=== PATIENT | female | born 1980 | race Two or more races ===

== ENCOUNTER 2020-07-02 12:57 | Outpatient (REF) | payer MEDICAID, SELFPAY ==
--- NOTE | ~2020-07-02 | XR_ITS ---
EXAMINATION: XR KNEE, BILATERAL XR HAND, LEFT CLINICAL INFORMATION: Pain in joint space. COMPARISON: None TECHNIQUE: Left hand/wrist 3 views. 4 views each knee. FINDINGS: LEFT HAND/WRIST: There is no visible acute fracture, dislocation or subluxation. No abnormal joint effusion seen. RIGHT KNEE: There is no visible acute fracture, dislocation or subluxation. There is mild loss of joint space medial compartment. The patellofemoral and the lateral compartment joint space is normal. No bony erosive changes or joint effusion seen. LEFT KNEE: There is no visible acute fracture, dislocation or joint effusion. There is mild loss of medial compartment joint space with lateral compartment periarticular spurring. No abnormal joint effusion seen. The soft tissues are normal. XR/XR hand wrist LT IMPRESSION: Unremarkable left hand/wrist exam. Mild degenerative changes medial compartment bilateral knees. There is no bony erosive changes, loose bodies or joint effusion.
--- NOTE | ~2020-07-02 | XR_ITS ---
EXAMINATION: XR KNEE, BILATERAL XR HAND, LEFT CLINICAL INFORMATION: Pain in joint space. COMPARISON: None TECHNIQUE: Left hand/wrist 3 views. 4 views each knee. FINDINGS: LEFT HAND/WRIST: There is no visible acute fracture, dislocation or subluxation. No abnormal joint effusion seen. RIGHT KNEE: There is no visible acute fracture, dislocation or subluxation. There is mild loss of joint space medial compartment. The patellofemoral and the lateral compartment joint space is normal. No bony erosive changes or joint effusion seen. LEFT KNEE: There is no visible acute fracture, dislocation or joint effusion. There is mild loss of medial compartment joint space with lateral compartment periarticular spurring. No abnormal joint effusion seen. The soft tissues are normal. XR/XR knee RT 3V IMPRESSION: Unremarkable left hand/wrist exam. Mild degenerative changes medial compartment bilateral knees. There is no bony erosive changes, loose bodies or joint effusion.
--- NOTE | ~2020-07-02 | XR_ITS ---
EXAMINATION: XR KNEE, BILATERAL XR HAND, LEFT CLINICAL INFORMATION: Pain in joint space. COMPARISON: None TECHNIQUE: Left hand/wrist 3 views. 4 views each knee. FINDINGS: LEFT HAND/WRIST: There is no visible acute fracture, dislocation or subluxation. No abnormal joint effusion seen. RIGHT KNEE: There is no visible acute fracture, dislocation or subluxation. There is mild loss of joint space medial compartment. The patellofemoral and the lateral compartment joint space is normal. No bony erosive changes or joint effusion seen. LEFT KNEE: There is no visible acute fracture, dislocation or joint effusion. There is mild loss of medial compartment joint space with lateral compartment periarticular spurring. No abnormal joint effusion seen. The soft tissues are normal. XR/XR knee LT 3V IMPRESSION: Unremarkable left hand/wrist exam. Mild degenerative changes medial compartment bilateral knees. There is no bony erosive changes, loose bodies or joint effusion.
[2020-07-02 14:57] LABS: MANUAL DIFF FLAG NO
[2020-07-02 15:03] LABS: Basophils Percent Auto 0.2 % (0-2); Eosinophils Absolute Auto 0.4 X10*3/uL (0.0-0.4); Eosinophils Percent Auto 3.2 % (0-4); Hematocrit 45.5 % (37-47); Hemoglobin 13.9 g/dl (12.0-16.0); Imm Gran Abs Auto 0.09 X10*3/uL (0.00-0.03); Imm Gran Pct Auto 0.7 % (0.0-0.4); Lymphocytes Absolute Auto 3.2 X10*3/uL (1.2-4.9); Lymphocytes Percent Auto 25.4 % (20-40); Mean Corpuscular HGB Conc 30.5 g/dl (31.0-35.0); Mean Corpuscular Hemoglobin 27.5 pg (27.0-33.0); Mean Corpuscular Volume 90.1 fL (80-98); Mean Platelet Volume 11.2 fL (9.4-12.3); Monocytes Absolute Auto 0.8 X10*3/uL (0.1-1.2); Monocytes Percent Auto 6.2 % (2-11); Neutrophils Absolute Auto 8.1 X10*3/uL (2.0-8.3); Neutrophils Percent Auto 64.3 % (45-73); Platelet Count 240 X10*3/uL (160-400); Red Blood Count 5.05 X10*6/uL (4.20-5.50); Red Cell Distribution Width 13.5 % (11.0-16.0); White Blood Count 12.7 X10*3/uL (4.8-10.8)
[2020-07-02 15:30] LABS: Alanine Aminotransferase 21 U/L (0-31); Alkaline Phosphatase 63 U/L (39-117); Anion Gap 12 (12-20); Aspartate Amino Transferase 19 U/L (5-31); Bilirubin Total 0.3 mg/dL (0.0-1.0); Blood Urea Nitrogen 11 mg/dL (9-16); C Reactive Protein 1.65 mg/dL (< or = 0.50); Calcium 9.4 mg/dL (8.4-10.2); Carbon Dioxide 29 mmol/L (22-29); Chloride 104 mmol/L (96-108); Estimated Glomerular Filt Rate > 60; Glucose Random 76 mg/dL (60-115); Potassium 4.5 mmol/L (3.3-5.1); Rheumatoid Factor < 15.0 IU/mL (<15.0); Sodium 140 mmol/L (135-145)
[2020-07-02 15:52] LABS: Thyroid Stimulating Hormone 1.01 uIU/mL (0.32-4.0)
[2020-07-02 15:55] LABS: Erythrocyte Sedimentation Rate 8 MM/HR (0-20)
[2020-07-03 12:22] LABS: Cyclic Citrullinated Peptide <16 UNITS
[2020-07-03 13:37] LABS: Anti Nuclear Antibody Screen NEGATIVE (NEGATIVE)
[2020-07-06 15:56] LABS: Vitamin D 25-OH, D2 <4 ng/mL; Vitamin D 25-OH, D3 13 ng/mL; Vitamin D 25-OH, Total 13 ng/mL (30-100)
== END 2020-07-02 12:58 | disposition home or self-care (01) ==
LOC: HO.LAB 12:57
PROVIDERS: PCP Internal Medicine; Visit Provider Student in an Organized Health Care Education/Training Program
DX: M25.50 Pain in unspecified joint (principal)
CPT/HCPCS: 36415; 73110; 73130; 73562; 80053; 82306; 84443; 85025; 85652; 86038; 86039; 86140; 86200; 86431; 99202

== ENCOUNTER 2021-01-09 10:14 | Outpatient (REF) | payer MEDICAID, SELFPAY ==
--- NOTE | ~2021-01-09 | XR_ITS ---
EXAMINATION: XR LUMBOSACRAL SPINE CLINICAL INFORMATION: Pain COMPARISON: Previous x-ray December 2013 TECHNIQUE: Three views of the lumbosacral spine. FINDINGS: Bone alignment is normal. No fracture or dislocation is seen. Disc spaces are normal. There is mild lower lumbar spine facet arthritis. Soft tissues are normal. XR/XR lumbar spine 2-3V IMPRESSION: Mild lower lumbar spine facet arthritis.
--- NOTE | ~2021-01-09 | XR_ITS ---
EXAMINATION: XR HIP, RIGHT CLINICAL INFORMATION: Pain COMPARISON: None TECHNIQUE: Two views of the right hip. FINDINGS: Bone alignment is normal. No fracture or dislocation is seen. There is a small superior lateral acetabular osteophyte. The joint space is otherwise. There is a right pelvic calcification probably representing a calcified phlebolith. Soft tissues are otherwise normal. XR/XR hip RT min 2V IMPRESSION: Small superior lateral acetabular osteophyte otherwise unremarkable exam.
--- NOTE | ~2021-01-09 | XR_ITS ---
EXAMINATION: XR ELBOW, LEFT CLINICAL INFORMATION: Pain COMPARISON: None TECHNIQUE: AP, lateral, and oblique views of the left elbow. FINDINGS: The bones and soft tissues are normal. No fracture or joint effusion. Alignment is anatomic. Joint spaces are maintained. XR/XR elbow LT 2V IMPRESSION: Normal left elbow.
== END 2021-01-09 10:15 | disposition home or self-care (01) ==
LOC: HO.XRAY 10:14
PROVIDERS: PCP Internal Medicine; Visit Provider Physician Assistant
DX: M54.59 Other low back pain (principal); M25.551 Pain in right hip; M25.522 Pain in left elbow
CPT/HCPCS: 72100; 73070; 73502

== ENCOUNTER → 2021-01-14 10:33 | Outpatient (BNVA) | payer MEDICAID, SELFPAY | PROVIDERS: PCP Internal Medicine; Visit Provider Nurse Practitioner Family | DX: M25.50 Pain in unspecified joint (principal); M25.522 Pain in left elbow | CPT/HCPCS: 99212 ==

== ENCOUNTER 2021-04-14 09:00 | Outpatient (REF) | payer MEDICAID, SELFPAY ==
[2021-04-14 10:02] LABS: Appearance Urine HAZY; Color Urine YELLOW; Glucose Urine UA NEG (NEG); Leukocyte Esterase Urine NEG (NEG); Nitrite Urine NEG (NEG); PH 5.5 (5.0-8.0); Specific Gravity - Urine >= 1.030 (1.005-1.025); Urine Blood NEG (NEG); Urine Ketones 5 MG/DL (NEG); Urine Protein TRACE MG/DL (NEG-TRACE)
[2021-04-14 10:28] LABS: Alanine Aminotransferase 20 U/L (0-31); Alkaline Phosphatase 58 U/L (39-117); Anion Gap 12 (12-20); Aspartate Amino Transferase 16 U/L (5-31); Bilirubin Total 0.3 mg/dL (0.0-1.0); Blood Urea Nitrogen 10 mg/dL (9-16); Calcium 9.8 mg/dL (8.4-10.2); Carbon Dioxide 29 mmol/L (22-29); Chloride 104 mmol/L (96-108); Estimated Glomerular Filt Rate > 60; Glucose Random 100 mg/dL (60-115); Potassium 4.8 mmol/L (3.3-5.1); Sodium 140 mmol/L (135-145); Total Protein 7.1 g/dL (6.5-8.0)
== END 2021-04-14 09:01 | disposition home or self-care (01) ==
LOC: HO.LAB 09:00
PROVIDERS: PCP Internal Medicine; Visit Provider Physician Assistant
DX: N23 Unspecified renal colic (principal)
CPT/HCPCS: 36415; 80053; 81003

== ENCOUNTER 2021-06-19 12:15 | Outpatient (REF) | payer MEDICAID, SELFPAY ==
--- NOTE | ~2021-06-19 | XR_ITS ---
EXAMINATION: XR CHEST CLINICAL INFORMATION: Acute cough COMPARISON: Previous chest x-ray February 2016 TECHNIQUE: 2 views of the chest were obtained. FINDINGS: No significant abnormality is noted involving the heart, lungs, mediastinum, bony thorax or soft tissues. XR/XR chest 2V IMPRESSION: Unremarkable examination.
[2021-06-19 13:58] LABS: Thyroid Stimulating Hormone 0.63 uIU/mL (0.32-4.0)
[2021-06-19 14:07] LABS: Folate > 20.0 ng/mL (> or = 4.0); Vitamin B12 854 pg/mL (200-900)
== END 2021-06-19 12:16 | disposition home or self-care (01) ==
LOC: HO.XRAY 12:15
PROVIDERS: Absent Provider Internal Medicine; PCP Internal Medicine; Visit Provider Psychiatry & Neurology Neurology
DX: R56.9 Unspecified convulsions (principal); R05.1 Acute cough
CPT/HCPCS: 36415; 71046; 82607; 82746; 84439; 84443

== ENCOUNTER 2021-07-16 11:20 | Outpatient (REF) | payer MEDICAID, SELFPAY ==
[2021-07-16 14:19] LABS: HCG Quantitative < 2 mIU/mL; TSH reflex Free T4 1.94 uIU/mL (0.32-4.0)
[2021-07-16 17:54] LABS: CT PCR NOT DETECTED (Not Detect.); NG PCR NOT DETECTED (Not Detect.)
[2021-07-18 01:37] LABS: Prolactin 6.7 ng/mL
[2021-07-19 14:45] LABS: HPV mRNA E6/E7 rflx Not Detected (Not Detected)
== END 2021-07-16 11:21 | disposition home or self-care (01) ==
LOC: HO.LAB 11:20
PROVIDERS: PCP Internal Medicine; Visit Provider Obstetrics & Gynecology
DX: Z01.419 Encounter for gynecological examination (general) (routine) without abnormal findings (principal); R31.29 Other microscopic hematuria; N91.2 Amenorrhea, unspecified; R10.2 Pelvic and perineal pain; D21.9 Benign neoplasm of connective and other soft tissue, unspecified; F17.210 Nicotine dependence, cigarettes, uncomplicated; Z32.02 Encounter for pregnancy test, result negative
CPT/HCPCS: 36415; 81025; 84146; 84443; 84702; 87086; 87491; 87591; 87624; 88142; 99202

== ENCOUNTER → 2021-08-06 11:38 | Outpatient (BNVA) | payer MEDICAID, SELFPAY | PROVIDERS: Visit Provider Obstetrics & Gynecology | DX: Z13.89 Encounter for screening for other disorder (principal) ==

== ENCOUNTER 2021-08-12 08:53 | Outpatient (REF) | payer MEDICAID, SELFPAY ==
--- NOTE | ~2021-08-12 | US_ITS ---
EXAMINATION: US PELVIS CLINICAL INFORMATION: Amenorrhea COMPARISON: Previous pelvic ultrasound August 2017 TECHNIQUE: Ultrasound of the pelvis is performed using both transabdominal and transvaginal transducers along with Doppler. Transvaginal imaging is performed due to inadequate visualization transabdominally. FINDINGS: The uterus is anteverted and measures 9.5 x 4.2 x 6 cm in dimension. There is a 1.2 x 1.4 x 1.2 cm hypoechoic cystic area in the right uterine fundus. This probably represents a cystic degeneration of the fibroid. No other focal uterine lesion is seen. Endometrial thickness is normal measuring 0.5 cm. There are nabothian cysts in the cervix. The ovaries are normal. The right ovary measures 4.3 x 2.4 x 2.6 cm. The left ovary measures 3.1 x 1.9 x 1.9 cm. There is no fluid in the pelvis. US/US pelvic and transvaginal IMPRESSION: 1.2 x 1.4 x 1.2 cm cystic lesion in the right uterine fundus probably representing cystic degeneration of fibroid. The previously identified second uterine fibroid in the left anterior uterine body is not appreciated. Normal thickness endometrium and normal-appearing ovaries.
== END 2021-08-12 08:54 | disposition home or self-care (01) ==
LOC: HO.HMGCX 08:53
PROVIDERS: Visit Provider Obstetrics & Gynecology
DX: N91.2 Amenorrhea, unspecified (principal)
CPT/HCPCS: 76830; 76856

== ENCOUNTER → 2021-09-05 14:38 | Outpatient (BNVA) | payer MEDICAID, SELFPAY | PROVIDERS: PCP Internal Medicine; Visit Provider Nurse Practitioner Family | DX: K21.9 Gastro-esophageal reflux disease without esophagitis (principal); K58.2 Mixed irritable bowel syndrome; R14.0 Abdominal distension (gaseous); M79.7 Fibromyalgia; Z79.899 Other long term (current) drug therapy | CPT/HCPCS: 99202; 99212 ==

== ENCOUNTER 2022-01-16 16:06 | Outpatient (REF) | payer MEDICAID, SELFPAY ==
[2022-01-16 17:42] LABS: Appearance Urine Cloudy; Color Urine Yellow; Glucose Urine UA Negative (Negative); Leukocyte Esterase Urine Negative (Negative); Nitrite Urine Negative (Negative); Urine Blood Negative (Negative); Urine Ketones Negative (Negative); Urine Protein Negative (Neg-Trace)
== END 2022-01-16 16:07 | disposition home or self-care (01) ==
LOC: HO.MANLDS 16:06
PROVIDERS: Visit Provider Physician Assistant
DX: R30.0 Dysuria (principal)
CPT/HCPCS: 81003; 87086

== ENCOUNTER 2022-04-22 08:01 | Outpatient (REF) | payer MEDICAID, SELFPAY ==
[2022-04-22 14:33] LABS: CT PCR NOT DETECTED (Not Detect.); NG PCR NOT DETECTED (Not Detect.)
== END 2022-04-22 08:02 | disposition home or self-care (01) ==
LOC: HO.LNP 08:01
PROVIDERS: PCP Internal Medicine; Visit Provider Obstetrics & Gynecology
DX: R10.2 Pelvic and perineal pain (principal); R31.29 Other microscopic hematuria
CPT/HCPCS: 0353U; 87086; 99212

== ENCOUNTER 2022-05-07 13:32 | Outpatient (REF) | payer MEDICAID, SELFPAY ==
--- NOTE | ~2022-05-07 | US_ITS ---
EXAMINATION: US PELVIS CLINICAL INFORMATION: Pelvic and perineal pain. LMP 2010. COMPARISON: 08/12/2021. TECHNIQUE: Ultrasound of the pelvis is performed using both transabdominal and transvaginal transducers along with Doppler. Transvaginal imaging is performed due to inadequate visualization transabdominally. FINDINGS: The uterus is anteverted and anteflexed measuring 7.5 x 3.2 x 4.2 cm. There is diffuse heterogeneity of the uterine myometrium with scattered hyperechoic foci, likely representing calcifications. There is a 1.3 x 1.3 x 1.6 cm intramural uterine lesion along the posterosuperior myometrium, statistically favoring to represent a fibroid. There are 2 cystic appearing lesions in the uterus, largest measuring 0.9 x 0.9 x 1 cm; this largest cystic lesion is unchanged since July 2021, the smaller lesion was not definitely identified on that prior examination. The endometrium measures 0.5 cm in thickness without discrete focal abnormality. There are multiple nabothian cyst overlying the cervix largest measuring 1.7 x 1.3 x 1.5 cm. Some of these demonstrate internal debris and septations. The ovaries are normal in morphology with preserved color flow to the adnexa at the moment of this examination. The right ovary measures 4 x 2.5 x 2 cm (10.7 mL) and the left ovary measures 3.2 x 1.5 x 2 cm (4.8 mL). No free fluid. US/US pelvic and transvaginal IMPRESSION: Uterine lesions, 2 of which are cystic, statistically favoring to represent fibroids with certain degree of degeneration. The uterine myometrium is diffusely heterogeneous with scattered calcifications, nonspecific could be related with the fibroids or underlying adenomyosis, recommend clinical correlation and if pertinent further characterization with a pelvic MRI with and without IV contrast. The endometrium measures 0.5 cm in thickness which is within the upper limits of normal for a postmenopausal patient. No discrete focal endometrial lesion is noted. Multiple nabothian cysts, some of which are complex with debris and septations. Recommend correlation with physical examination and a short-term follow-up pelvic ultrasound to reassess. Nonspecific slight asymmetric enlargement of the right ovary which is otherwise normal in morphology with preserved color flow at the moment of this examination. Recommend clinical correlation with localized pain, and a follow-up imaging as above.
== END 2022-05-07 13:33 | disposition home or self-care (01) ==
LOC: HO.US 13:32
PROVIDERS: Visit Provider Obstetrics & Gynecology
DX: R10.2 Pelvic and perineal pain (principal)
CPT/HCPCS: 76830; 76856

== ENCOUNTER 2022-05-11 09:05 | Outpatient (REF) | payer MEDICAID, SELFPAY ==
--- NOTE | ~2022-05-11 | XR_ITS ---
EXAMINATION: XR CERVICAL SPINE CLINICAL INFORMATION: Neck pain COMPARISON: Previous exam from 2014 TECHNIQUE: 3 views of the cervical spine were obtained. FINDINGS: Bone alignment is normal. No fracture or dislocation. Degenerative spondylosis at C5-C6 and C6-C7. Prevertebral soft tissues are normal. Arthritis at the bilateral T1 transverse process rib articulation, left greater than right. XR/XR cervical spine 3V IMPRESSION: Degenerative spondylosis at C5-C6 and C6-C7. Arthritis at the bilateral T1 transverse process rib articulation.
--- NOTE | ~2022-05-11 | XR_ITS ---
EXAMINATION: XR SHOULDER, LEFT CLINICAL INFORMATION: Pain. COMPARISON: None TECHNIQUE: Three views of the left shoulder. FINDINGS: The bones and soft tissues are normal. No fracture. Glenohumeral and acromioclavicular alignment is anatomic with normal joint space. No abnormal soft tissue calcifications. XR/XR shoulder LT min 2V IMPRESSION: Normal left shoulder.
--- NOTE | ~2022-05-11 | XR_ITS ---
EXAMINATION: XR KNEE, LEFT CLINICAL INFORMATION: Left knee pain. COMPARISON: Radiograph of the left knee 07/02/2020. TECHNIQUE: Two views of the left knee. FINDINGS: No acute fracture or subluxation. Mild joint space narrowing of the medial compartment. No erosions or chondrocalcinosis. Small joint effusion. No abnormal soft tissue calcifications. XR/XR knee LT 2V IMPRESSION: 1. No acute fracture or subluxation. 2. Mild degenerative osteoarthritis of the medial compartment. 3. Small joint effusion.
--- NOTE | ~2022-05-11 | XR_ITS ---
EXAMINATION: XR SACRUM AND COCCYX CLINICAL INFORMATION: Pain. COMPARISON: No similar priors. TECHNIQUE: 2 views of the sacrum and 2 views of the coccyx were obtained. FINDINGS: No acute fractures or malalignment. SI joints are symmetric with no significant sclerosis. Pubic symphysis is maintained. No erosive changes. No abnormal soft tissue calcifications. Pelvic phleboliths are noted. XR/XR sacrum coccyx min 2V IMPRESSION: No acute fractures or malalignment. If symptoms persist, consider correlation with an MRI.
== END 2022-05-11 09:06 | disposition home or self-care (01) ==
LOC: HO.XRAY 09:05
PROVIDERS: PCP Internal Medicine; Visit Provider Physician Assistant
DX: M54.2 Cervicalgia (principal); M25.512 Pain in left shoulder; M25.562 Pain in left knee; M53.3 Sacrococcygeal disorders, not elsewhere classified
CPT/HCPCS: 72040; 72220; 73030; 73560

== ENCOUNTER → 2022-05-13 10:17 | Outpatient (BNVA) | payer MEDICAID, SELFPAY | PROVIDERS: PCP Internal Medicine; Visit Provider Obstetrics & Gynecology | DX: D25.9 Leiomyoma of uterus, unspecified (principal); R31.29 Other microscopic hematuria | CPT/HCPCS: 99212 ==

== ENCOUNTER 2022-05-29 09:20 | Outpatient (REF) | payer MEDICAID, SELFPAY ==
--- NOTE | ~2022-05-29 | CT_ITS ---
EXAMINATION: CT ABDOMEN AND PELVIS WITHOUT AND WITH CONTRAST CLINICAL INFORMATION: Other microscopic hematuria. COMPARISON: None TECHNIQUE: Multidetector volumetric imaging was performed of the abdomen and pelvis before and after the IV administration of 85 mL of Omnipaque 350 intravenous contrast. Sagittal and coronal reformatted images were obtained on the technologist's workstation. This CT examination was performed using dose optimization techniques as appropriate, variously including the following: *Automated exposure control *Adjustment of mA and/or kV according to patient size (this includes techniques or standardized protocols for targeted exams where dose is matched to indication/reason for exam; i.e. extremities or head) *Use of iterative reconstruction technique DLP: 1386 mGy-cm FINDINGS: LUNG BASES: The lung bases are clear. Heart size is normal. LIVER, GALLBLADDER, AND BILIARY TREE: The liver is normal in size, shape and attenuation. No focal hepatic lesion or biliary ductal dilatation is present. The gallbladder is not visualized. PANCREAS: Unremarkable. SPLEEN: Unremarkable. ADRENAL GLANDS: Unremarkable. KIDNEYS AND URETERS: The kidneys are normal in size, shape, and attenuation. The right kidney oriented in AP direction and measures 10.7 cm. There is a nonobstructive 4 mm calculi lower pole right kidney. The left kidney is unremarkable. There is no caliectasis or hydronephrosis. Postcontrast, there is no enhancing mass or cyst. There is good opacification of bilateral kidney pelvises and the ureters. BLADDER: The bladder is nondistended. GASTROINTESTINAL TRACT: There is scattered stool and gas seen throughout the colon without distention. The small bowel loops are normal caliber. Appendix is not visualized. No inflammatory process seen in the abdomen. ABDOMINAL WALL: No significant hernia is appreciated. LYMPH NODES: Small shotty lymph nodes are seen in the retroperitoneum largest measuring 1 cm. VASCULAR: Unremarkable. PELVIC VISCERA: The uterus is anteverted with a small hypodensity symmetrical junction likely a small Nabothian cysts. Small shotty bilateral inguinal lymph nodes seen slightly more prominent on the right side measuring 1.7 cm. OSSEOUS STRUCTURES: No aggressive lytic or sclerotic process seen. CT/CT abdomen pelvis wo/w IV con IMPRESSION: Nonobstructive 4 mm calculi lower pole right kidney. No caliectasis or hydronephrosis. Mild constipation. Fleischner guidelines were followed.
[2022-05-29] MEDS: iohexoL 350 MG/ML 100 ML INFUS..BTL IV (11:15)
== END 2022-05-29 09:21 | disposition home or self-care (01) ==
LOC: HO.CT 09:20
PROVIDERS: Visit Provider Obstetrics & Gynecology
DX: R31.29 Other microscopic hematuria (principal)
CPT/HCPCS: 74178; Q9967

== ENCOUNTER 2022-06-29 14:00 | Emergency (ER) | payer MEDICAID, SELFPAY ==
[2022-06-29 14:19] VITALS: BP 156/91; PULSE 90; RESP 18; TEMP 36.8; O2SAT 96; BMI 51.5
--- NOTE | 2022-06-29 14:45 | ED.GENADULT ---
HPI - General Adult General Chief complaint: Allergic Reaction Stated complaint: allergic reaction to med, tight chest,numb face Time Seen by Provider: 06/29/22 15:45 Related Data Home Medications Medication Instructions Recorded Confirmed albuterol sulfate 90 mcg/actuation 1 puff inhalation QID 07/02/20 aerosol inhaler (ProAir HFA) budesonide-formoterol HFA 80 2 puff inhalation BID 07/02/20 mcg-4.5 mcg/actuation aerosol inhaler (Symbicort) clonazepam 0.5 mg tablet 0.5 mg PO QID PRN 07/02/20 ibuprofen 800 mg tablet 800 mg PO Q8H 01/14/21 tramadol 50 mg tablet 50 mg PO Q6H 01/14/21 losartan 25 mg tablet 25 mg PO DAILY 05/13/22 Previous Rx's Medication Instructions Recorded cock up wrist splint #1 ea 01/14/21 methylcellulose (laxative) 500 mg 500 mg PO DAILY #90 tabs 09/05/21 tablet (Citrucel) pantoprazole 40 mg tablet,delayed 40 mg PO DAILY #90 tabs 09/05/21 release sennosides 8.6 mg tablet (Natural 8.6 mg PO BEDTIME constipation #90 09/05/21 Senna Laxative) tabs cholecalciferol (vitamin D3) 50 50 mcg PO DAILY #90 caps 09/17/21 mcg (2,000 unit) capsule Allergies Allergy/AdvReac Type Severity Reaction Status Date / Time bupropion [From WELLBUTRIN] Allergy Severe TACHYCARDIA Verified 05/13/22 10:28 PMFSH Past Medical History Medical History Anxiety Asthma Depression Dissociative identity disorder Polyarthralgia PTSD (post-traumatic stress disorder) Sleep apnea Surgical History H/O tubal ligation History of tonsillectomy Hx of cholecystectomy Family History Family History Mother Acute arthritis Breast cancer Stomach cancer Father Chronic lymphocytic leukemia (CLL), B-cell HTN (hypertension) Acromioclavicular joint arthritis Social History Social History Household Members: Children Alcohol intake: current Alcohol intake frequency: holidays/special occasions only Patient Tobacco Use Status: Current everyday Tobacco user Cigarettes Per Day: 5 Advance Directives: No Advance Directives Information Provided: No Physical Exam ED Vital Signs: Vital Signs - 24 hr 06/29/22 14:19 Temperature 98.3 F Pulse Rate 90 Respiratory Rate 18 Blood Pressure 156/91 H Pulse Oximetry 96 Oxygen Delivery Method Nasal Cannula BMI result Body Mass Index 51.5 Course Course Course Narrative: RME: 41 yold female presents to the ED for itchiness after taking losartan which is her new medication she started using eyerday. no rash. negative for lip swelling/tongue swelling or shortness of breath. patient not in distress. lungs clear and speaking in full sentences. no chest pain. Discharge Plan Discharge Clinical Impression: Allergic reaction Patient Disposition: Elopement Prescriptions: No Action cholecalciferol (vitamin D3) 50 mcg (2,000 unit) capsule 50 mcg PO DAILY Qty: 90 1RF clonazepam 0.5 mg tablet 0.5 mg PO QID PRN albuterol sulfate [ProAir HFA] 90 mcg/actuation HFA aerosol inhaler 1 puff inhalation QID budesonide-formoterol [Symbicort] 80-4.5 mcg/actuation HFA aerosol inhaler 2 puff inhalation BID tramadol 50 mg tablet 50 mg PO Q6H ibuprofen 800 mg tablet 800 mg PO Q8H (DME) cock up wrist splint See Rx Instructions .Route .MEDSUPPLY Qty: 1 0RF Rx Instructions: As directed, wear at night. losartan 25 mg tablet 25 mg PO DAILY pantoprazole 40 mg tablet,delayed release (DR/EC) 40 mg PO DAILY Qty: 90 2RF Rx Instructions: take one tablet half an hour before breakfast Citrucel 500 mg tablet 500 mg PO DAILY Qty: 90 2RF Rx Instructions: take it with full glass of water sennosides [Natural Senna Laxative] 8.6 mg tablet 8.6 mg PO BEDTIME Qty: 90 3RF Interventions: ED Discharge Assessment Last Done: 06/29/22 18:13 Discharge Date/Time: 06/29/22 18:14
== END 2022-06-29 18:14 | disposition left against medical advice (07) ==
PROVIDERS: Emergency Provider Emergency Medicine; PCP Internal Medicine
DX: L50.0 Allergic urticaria (principal)
CPT/HCPCS: 99282

== ENCOUNTER 2022-07-07 08:59 | Outpatient (REF) | payer MEDICAID, SELFPAY ==
[2022-07-07 16:57] LABS: Urine Cytology See Pathology rpt
== END 2022-07-07 09:00 | disposition home or self-care (01) ==
LOC: HO.LNP 08:59
PROVIDERS: PCP Internal Medicine; Visit Provider Nurse Practitioner Family
DX: R31.29 Other microscopic hematuria (principal); N20.0 Calculus of kidney
CPT/HCPCS: 88112; 99202

== ENCOUNTER 2022-09-17 13:43 | Outpatient (REF) | payer MEDICAID, SELFPAY ==
[2022-09-17 15:57] LABS: Alanine Aminotransferase 27 U/L (0-31); Albumin Level 3.9 g/dL (3.5-5.0); Alkaline Phosphatase 57 U/L (39-117); Aspartate Amino Transferase 16 U/L (5-31); Bilirubin Direct 0.1 mg/dL (0.0-0.5); Bilirubin Total 0.3 mg/dL (0.0-1.0); Lipase 40 U/L (8-78); Total Protein 7.3 g/dL (6.5-8.0)
[2022-09-17 16:12] LABS: Vitamin D 25-OH Total 23.2 ng/mL (>30)
[2022-09-17 16:13] LABS: TSH reflex Free T4 1.65 uIU/mL (0.32-4.0)
[2022-09-17 16:33] LABS: Folate 14.8 ng/mL (> or = 4.0); Vitamin B12 639 pg/mL (200-900)
[2022-09-22 14:58] LABS: Vitamin D 25-OH, D2 <4 ng/mL; Vitamin D 25-OH, D3 19 ng/mL; Vitamin D 25-OH, Total 19 ng/mL (30-100)
[2022-10-01 13:23] LABS: Transglutaminase IgA <1.0 U/mL
== END 2022-09-17 13:44 | disposition home or self-care (01) ==
LOC: HO.LAB 13:43
PROVIDERS: Nurse Practitioner Family; PCP Internal Medicine; Visit Provider Nurse Practitioner Family
DX: K57.90 Diverticulosis of intestine, part unspecified, without perforation or abscess without bleeding (principal); K21.9 Gastro-esophageal reflux disease without esophagitis; K58.0 Irritable bowel syndrome with diarrhea; K58.1 Irritable bowel syndrome with constipation; K59.01 Slow transit constipation; E55.9 Vitamin D deficiency, unspecified; M79.7 Fibromyalgia; R11.0 Nausea; R14.0 Abdominal distension (gaseous); R10.9 Unspecified abdominal pain
CPT/HCPCS: 36415; 80076; 82306; 82607; 82746; 83690; 84443; 86364; 99212

== ENCOUNTER 2023-02-17 10:47 | Outpatient (REF) | payer MEDICAID, SELFPAY ==
[2023-02-17 11:04] LABS: MANUAL DIFF FLAG NO
[2023-02-17 11:49] LABS: Basophils Percent Auto 0.2 % (0-2); Eosinophils Absolute Auto 0.3 X10*3/uL (0.0-0.4); Eosinophils Percent Auto 3.1 % (0-4); Hematocrit 45.6 % (37.0-47.0); Hemoglobin 14.1 g/dl (12.0-16.0); Imm Gran Abs Auto 0.07 X10*3/uL (0.00-0.03); Imm Gran Pct Auto 0.6 % (0.0-0.4); Lymphocytes Absolute Auto 2.3 X10*3/uL (1.2-4.9); Lymphocytes Percent Auto 21.3 % (20-40); Mean Corpuscular HGB Conc 30.9 g/dl (31.0-35.0); Mean Corpuscular Volume 90.5 fL (80.0-98.0); Mean Platelet Volume 11.1 fL (9.4-12.3); Monocytes Absolute Auto 0.3 X10*3/uL (0.1-1.2); Monocytes Percent Auto 2.8 % (2-11); Neutrophils Absolute Auto 7.9 x10*3/uL (2.0-8.3); Platelet Count 252 X10*3/uL (160-400); Red Blood Count 5.04 X10*6/uL (4.20-5.50); Red Cell Distribution Width 14.2 % (11.0-16.0)
[2023-02-17 11:59] LABS: Estimated Average Glucose 108 mg/dL; Hemoglobin A1c % 5.4 % (<6.0)
[2023-02-17 12:32] LABS: Alanine Aminotransferase 26 U/L (0-31); Albumin Level 3.8 g/dL (3.5-5.0); Alkaline Phosphatase 58 U/L (39-117); Anion Gap 9 (12-20); Aspartate Amino Transferase 17 U/L (5-31); Bilirubin Total 0.3 mg/dL (0.0-1.0); Blood Urea Nitrogen 14 mg/dL (9-16); Calcium 9.2 mg/dL (8.4-10.2); Carbon Dioxide 28 mmol/L (22-29); Chloride 107 mmol/L (96-108); Estimated Glomerular Filt Rate > 60; Glucose Random 107 mg/dL (60-115); Iron 45 mcg/dL (30-160); Percent Iron Saturation 19 % (15-50); Potassium 3.7 mmol/L (3.3-5.1); Sodium 140 mmol/L (135-145); Total Iron Binding Capacity 239 mcg/dL (228-428); Total Protein 7.1 g/dL (6.5-8.0); Unsaturated Iron Binding 194 ug/dL
[2023-02-17 12:48] LABS: TSH reflex Free T4 1.58 uIU/mL (0.32-4.0); Vitamin D 25-OH Total 15.4 ng/mL (>30)
[2023-02-17 12:57] LABS: Folate 14.8 ng/mL (> or = 4.0); Vitamin B12 731 pg/mL (200-900)
== END 2023-02-17 10:48 | disposition home or self-care (01) ==
LOC: HO.LAB 10:47
PROVIDERS: PCP Physician Assistant; Visit Provider Physician Assistant
DX: I10 Essential (primary) hypertension (principal); R53.83 Other fatigue
CPT/HCPCS: 36415; 80053; 82306; 82607; 82746; 83036; 83540; 84443; 85025

== ENCOUNTER → 2023-02-22 13:28 | Outpatient (REF) | payer MEDICAID, SELFPAY ==
--- NOTE | 2023-02-22 13:34 | HM_ITS ---
* Total monitoring time 2 days. * Underlying rhythm is sinus with an average rate of 97/Min. Range 66 to 146/Min. About 36% of the time, rate greater than 100/min. * Rare supraventricular and ventricular ectopy. * No sustained arrhythmias. * No significant pauses or AV blocks. * No patient markers or events in diary. MTDD
== END ==
LOC: HO.CARD 13:28
PROVIDERS: PCP Internal Medicine; Visit Provider Physician Assistant
DX: R42 Dizziness and giddiness (principal)
CPT/HCPCS: 93225

== ENCOUNTER → 2023-02-22 13:34 | Outpatient (BNV) | payer MEDICAID, SELFPAY | PROVIDERS: PCP Internal Medicine; Visit Provider Internal Medicine | DX: I47.10 Supraventricular tachycardia, unspecified (principal) | CPT/HCPCS: 93227 ==

== ENCOUNTER 2023-06-20 19:07 | Emergency (ER) | payer MEDICAID, SELFPAY ==
[2023-06-20 19:33] VITALS: BP 202/95; PULSE 103; RESP 18; TEMP 36.2; O2SAT 97; BMI 45.4
[2023-06-20 19:53] LABS: Hematocrit 46.4 % (37.0-47.0); Hemoglobin 15.2 g/dl (12.0-16.0); Mean Corpuscular HGB Conc 32.8 g/dl (31.0-35.0); Mean Corpuscular Hemoglobin 29.2 pg (27.0-33.0); Mean Corpuscular Volume 89.1 fL (80.0-98.0); Mean Platelet Volume 9.9 fL (9.4-12.3); Platelet Count 259 X10*3/uL (160-400); Red Blood Count 5.21 X10*6/uL (4.20-5.50); Red Cell Distribution Width 13.8 % (11.0-16.0); White Blood Count 15.4 X10*3/uL (4.8-10.8)
[2023-06-20 20:11] LABS: Alanine Aminotransferase 18 U/L (0-31); Albumin Level 3.9 g/dL (3.5-5.0); Alkaline Phosphatase 69 U/L (39-117); Anion Gap 11 (12-20); Aspartate Amino Transferase 13 U/L (5-31); Bilirubin Total 0.2 mg/dL (0.0-1.0); Blood Urea Nitrogen 13 mg/dL (9-16); Calcium 9.9 mg/dL (8.4-10.2); Carbon Dioxide 29 mmol/L (22-29); Chloride 107 mmol/L (96-108); Creatinine Clr Calc Pharmacy 119.4; Estimated Glomerular Filt Rate > 60; Glucose Random 103 mg/dL (60-115); Potassium 4.2 mmol/L (3.3-5.1); Sodium 143 mmol/L (135-145); Total Protein 7.1 g/dL (6.5-8.0)
[2023-06-20 20:55] VITALS: BP 144/85; PULSE 83; RESP 20; O2SAT 93
--- NOTE | 2023-06-20 21:32 | ED.SKABFB ---
HPI - Skin/Abscess/Foreign Bdy General Chief complaint: Skin/Abscess/Foreign Body Stated complaint: leaking ruptured cyst on abd Time Seen by Provider: 06/20/23 21:01 Source: patient Mode of arrival: ambulatory Limitations: no limitations History of Present Illness HPI narrative: 42 yo female with PMH of obesity, not a diabetic no hx of MRSA notes 1 month ago she had a cyst on her right lower abdomen and a senior administrative associate injected with saline. On wednesday it started to hurt and then yesterday it opened and started to drain. Today more draining and now redness and pain across the entire lower skin. No fevers, n/v or chills. This has never happened before. MD complaint: rash and abscess/boil Onset (ago): day(s) (Wednesday) Location: generalized (abdomen) Severity: moderate Quality: aching Pain Consistency: constant Relieving factors: none Exacerbating factors: palpation and movement Context: none Associated symptoms: denies other symptoms Treatments prior to arrival: bandages Related Data Home Medications Medication Instructions Recorded Confirmed albuterol sulfate 90 mcg/actuation 1 puff inhalation QID 07/02/20 07/07/22 aerosol inhaler (ProAir HFA) clonazepam 0.5 mg tablet 0.5 mg PO QID PRN 07/02/20 07/07/22 ibuprofen 800 mg tablet 800 mg PO Q8H 01/14/21 07/07/22 tramadol 50 mg tablet 50 mg PO Q6H 01/14/21 07/07/22 duloxetine 30 mg capsule,delayed 30 mg PO DAILY 07/07/22 07/07/22 release Previous Rx's Medication Instructions Recorded cock up wrist splint #1 ea 01/14/21 pyridoxine (vitamin B6) 100 mg 100 mg PO DAILY 90 days #90 tabs 07/07/22 tablet methylcellulose (laxative) 500 mg 500 mg PO DAILY #90 tabs 09/17/22 tablet (Citrucel) sennosides 8.6 mg tablet (Natural 8.6 mg PO BEDTIME constipation #90 09/17/22 Senna Laxative) tabs cholecalciferol (vitamin D3) 50 50 mcg PO DAILY #90 caps 10/01/22 mcg (2,000 unit) capsule cephalexin 500 mg capsule 500 mg PO 1XD 7 days #7 caps 06/20/23 doxycycline hyclate 100 mg capsule 100 mg PO BID 7 days #14 caps 06/20/23 hydrocodone 5 mg-acetaminophen 325 1 tab PO Q6H PRN pain #10 tabs 06/20/23 mg tablet Allergies Allergy/AdvReac Type Severity Reaction Status Date / Time bupropion [From WELLBUTRIN] Allergy Severe TACHYCARDIA Verified 06/20/23 19:33 losartan Allergy rash/swelling/blurred Verified 06/20/23 19:33 vision Review of Systems Review of Systems: Constitutional : No Fever, No Chills ENT/Mouth : No sore throat, No Rhinorrhea Eyes: No Eye Pain, No Swelling, No Redness Cardiovascular : No Chest Pain, No SOB Respiratory : No Cough, No Sputum Gastrointestinal : No Nausea, No Vomiting, No Diarrhea, No abdominal Pain Genitourinary : No Dysuria, No Hematuria Musculoskeletal : No joint pain, No Myalgias, No Joint Swelling Skin : No Skin Lesions, positive skin rash Neuro : No Weakness, No Numbness, No Headache Psych : No Anxiety, No Depression Heme/Lymph: No Bruising, No Bleeding,No Lymphadenopathy Endocrine : No Polyuria, No Polydipsia All other systems reviewed and are negative [facility] Past Medical History Attestation statement: The following information was validated with the patient. Source: old records reviewed Medical History Sleep apnea Dissociative identity disorder PTSD (post-traumatic stress disorder) Anxiety Depression Asthma Polyarthralgia Surgical History H/O tubal ligation Hx of cholecystectomy History of tonsillectomy Family History Family History Mother Acute arthritis Breast cancer Stomach cancer Father Chronic lymphocytic leukemia (CLL), B-cell HTN (hypertension) Acromioclavicular joint arthritis Social History Social History Household Members: Children Alcohol intake: current Alcohol intake frequency: a few times a week Patient Tobacco Use Status: Current everyday Tobacco user Cigarettes Per Day: 5 Smoked in Last 30 Days: Yes Use of substances other than those prescribed or required for medical reasons: Yes Substance Use Type: Marijuana Substance Use Frequency: Socially Advance Directives: No Advance Directives Information Provided: No Patient : No Physical Exam Vital Signs: Vital Signs: Last Vital Signs Temp 97.2 F 06/20/23 19:33 Pulse 83 06/20/23 20:55 Resp 20 06/20/23 20:55 BP 144/85 H 06/20/23 20:55 Pulse Ox 93 06/20/23 20:55 O2 Del Method Room Air 06/20/23 20:55 BMI result Body Mass Index 45.4 Appearance: Alert. Oriented X3. No acute distress. Eyes: Pupils equal, round and reactive to light. ENT: Pharynx normal. Neck: Normal inspection. Neck supple. CVS: Normal heart rate and rhythm. Pulses normal. Respiratory: No respiratory distress. Breath sounds normal. Abdomen: Soft right lower abdomen 2cm pustule that is draining with surrounding edema and erythema erythema extends to midline it is about 6 to 8cm in length Skin: Skin warm and dry. Normal skin color. Normal skin turgor. Extremities: No lower extremity edema. No calf ttp Neuro: Oriented X 3. No motor deficit. No sensory deficit. Medications Administered Discontinued Medications Generic Name Dose Route Start Last Admin Trade Name Kirillq PRN Reason Stop Dose Admin Hydrocodone Bitart/Acetaminophen 1 tab 06/20/23 21:10 06/20/23 21:36 Hydrocodone Bit/Acetam 5/325 Tablet PO 06/20/23 21:11 1 tab ONCE ONE Administration Piperacillin Sod/Tazobactam 50 mls @ 100 mls/hr 06/20/23 21:10 06/20/23 22:35 Sod 3.375 gm/ Sodium Chloride IV 06/20/23 21:39 Infused ONCE ONE Infusion Ondansetron HCl 4 mg 06/20/23 21:10 06/20/23 21:36 Ondansetron Odt 4 Mg Tab.Rapdis TRANSLINGU 06/20/23 21:11 4 mg ONCE ONE Administration Medical Decision Making Medical Decision Making MDM Narrative: 42 yo female with no PMH of diabetes or MRSA here with c/o R lower abdomen draining pustule now with lower abdominal wall cellulitis she denies systemic symptoms area is superficial it is not deep and already draining at this time will obtain labs, start on zosyn and reassess. Possible admit vs discharge pending observation in the ED. Differential Diagnosis Differential Diagnoses: The differential diagnosis associated with the presentation includes abscess, cellulitis Admission/Observation Consideration of admission/observation: Escalation of care including admission/observation considered VS stable, negative lactic acid, eating and drinking does have elevated WBC count but hx of same she is reasonable for outpatient management at this time will send home with precautions Lab Data MDM Lab Attestation statement: I reviewed the patient's lab results. 06/20/23 19:48 06/20/23 19:48 Labs: Lab Results 06/20/23 06/20/23 Range/Units 19:48 21:21 WBC 15.4 H (4.8-10.8) X10*3/uL RBC 5.21 (4.20-5.50) X10*6/uL Hgb 15.2 (12.0-16.0) g/dl Hct 46.4 (37.0-47.0) % MCV 89.1 (80.0-98.0) fL MCH 29.2 (27.0-33.0) pg MCHC 32.8 (31.0-35.0) g/dl RDW 13.8 (11.0-16.0) % Plt Count 259 (160-400) X10*3/uL MPV 9.9 (9.4-12.3) fL Absolute Nucleated RBC 0.000 (0.0-0.012) X10*3/uL Nucleated RBC % (auto) 0.0 (0.0-0.2) /100WBC Sodium 143 (135-145) mmol/L Potassium 4.2 (3.3-5.1) mmol/L Chloride 107 (96-108) mmol/L Carbon Dioxide 29 (22-29) mmol/L Anion Gap 11 L (12-20) BUN 13 (9-16) mg/dL Creatinine 0.72 (0.5-1.4) mg/dL Estim Creat Clear Calc 119.4 Estimated GFR > 60 Random Glucose 103 (60-115) mg/dL Lactic Acid 0.7 (0.5-2.0) mmol/L Calcium 9.9 D (8.4-10.2) mg/dL Total Bilirubin 0.2 (0.0-1.0) mg/dL AST 13 (5-31) U/L ALT 18 (0-31) U/L Alkaline Phosphatase 69 (39-117) U/L Total Protein 7.1 (6.5-8.0) g/dL Albumin 3.9 (3.5-5.0) g/dL External Record Review External record reviewed: Inpatient record Prescription Management I considered prescription management with: Pain Medication and Antibiotic Discharge Plan Discharge Clinical Impression: Cellulitis Qualifiers: Site of cellulitis: trunk Site of cellulitis of trunk: abdominal wall Qualified Code(s): L03.311 - Cellulitis of abdominal wall Abscess of skin or subcutaneous tissue Qualifiers: Site of cutaneous abscess: trunk Site of cutaneous abscess of trunk: abdominal wall Qualified Code(s): L02.211 - Cutaneous abscess of abdominal wall Patient Disposition: Home, Self-Care Instructions: Cellulitis (ED), Abscess (ED) Additional Instructions: warm compresses to allow it to drain for the next 3 days. keep it clean and covered with sterile dressings. return for increased pain, fevers, redness and swelling - redness past the belly button or extending upwards finish and complete all antibiotics take antibiotics with a meal and full glass of water hold tramadol if you are taking the hydrocodone if the pain is severe Prescriptions: New doxycycline hyclate 100 mg capsule 100 mg PO BID 7 Days Qty: 14 0RF hydrocodone-acetaminophen 5-325 mg tablet 1 tab PO Q6H PRN (Reason: pain) Qty: 10 0RF Rx Instructions: partial fill okay; Partial Fill upon patient request. cephalexin 500 mg capsule 500 mg PO 1XD 7 Days Qty: 7 0RF No Action cholecalciferol (vitamin D3) 50 mcg (2,000 unit) capsule 50 mcg PO DAILY Qty: 90 1RF clonazepam 0.5 mg tablet 0.5 mg PO QID PRN albuterol sulfate [ProAir HFA] 90 mcg/actuation HFA aerosol inhaler 1 puff inhalation QID tramadol 50 mg tablet 50 mg PO Q6H ibuprofen 800 mg tablet 800 mg PO Q8H (DME) cock up wrist splint See Rx Instructions .Route .MEDSUPPLY Qty: 1 0RF Rx Instructions: As directed, wear at night. duloxetine 30 mg capsule,delayed release(DR/EC) 30 mg PO DAILY pyridoxine (vitamin B6) 100 mg tablet 100 mg PO DAILY 90 Days Qty: 90 1RF Citrucel 500 mg tablet 500 mg PO DAILY Qty: 90 2RF Rx Instructions: take it with full glass of water sennosides [Natural Senna Laxative] 8.6 mg tablet 8.6 mg PO BEDTIME Qty: 90 3RF
[2023-06-20 21:36] LABS: Lactic Acid 0.7 mmol/L (0.5-2.0)
[2023-06-20] MEDS: HYDROcodone Bit/Acetam 5/325 TABLET 1 TAB PO (21:36)
[2023-06-20] MEDS: Ondansetron ODT 4 MG TAB.RAPDIS TRANSLINGU (21:36)
[2023-06-20] MEDS: Piperacillin Sodium/Tazobactam 3.375 GM in 0.9 % Sodium Chloride 50 ML IV (21:51)
[2023-06-20] MEDS: Doxycycline Monohydrate 100 MG CAPSULE PO (23:25)
[2023-06-20] MEDS: cephALEXin 500 MG CAPSULE PO (23:25)
[2023-06-20 23:36] VITALS: BP 140/82; PULSE 77; RESP 18; TEMP 36.8; O2SAT 94
== END 2023-06-20 23:43 | disposition home or self-care (01) ==
PROVIDERS: Emergency Provider Emergency Medicine; PCP Internal Medicine
DX: L03.311 Cellulitis of abdominal wall (principal); L02.211 Cutaneous abscess of abdominal wall
CPT/HCPCS: 36415; 80053; 83605; 85027; 87040; 96365; 99284; J2543

== ENCOUNTER 2023-10-11 09:56 | Outpatient (REF) | payer MEDICAID, SELFPAY ==
[2023-10-11 13:14] LABS: MANUAL DIFF FLAG NO
[2023-10-11 13:21] LABS: Basophils Percent Auto 0.3 % (0-2); Eosinophils Absolute Auto 0.3 X10*3/uL (0.0-0.4); Eosinophils Percent Auto 3.6 % (0-4); Hematocrit 45.8 % (37.0-47.0); Hemoglobin 14.3 g/dl (12.0-16.0); Imm Gran Abs Auto 0.06 X10*3/uL (0.00-0.03); Imm Gran Pct Auto 0.6 % (0.0-0.4); Lymphocytes Absolute Auto 2.3 X10*3/uL (1.2-4.9); Lymphocytes Percent Auto 24.5 % (20-40); Mean Corpuscular HGB Conc 31.2 g/dl (31.0-35.0); Mean Corpuscular Hemoglobin 28.5 pg (27.0-33.0); Mean Corpuscular Volume 91.4 fL (80.0-98.0); Mean Platelet Volume 11.2 fL (9.4-12.3); Monocytes Absolute Auto 0.6 X10*3/uL (0.1-1.2); Monocytes Percent Auto 6.5 % (2-11); Neutrophils Percent Auto 64.5 % (45-73); Platelet Count 260 X10*3/uL (160-400); Red Blood Count 5.01 X10*6/uL (4.20-5.50); Red Cell Distribution Width 13.6 % (11.0-16.0); White Blood Count 9.4 X10*3/uL (4.8-10.8)
[2023-10-11 13:36] LABS: Estimated Average Glucose 103 mg/dL; Hemoglobin A1c % 5.2 % (<6.0)
[2023-10-11 13:59] LABS: Alanine Aminotransferase 20 U/L (0-31); Alkaline Phosphatase 58 U/L (39-117); Anion Gap 13 (12-20); Aspartate Amino Transferase 20 U/L (5-31); Bilirubin Total 0.3 mg/dL (0.0-1.0); Blood Urea Nitrogen 10 mg/dL (9-16); Calcium 9.5 mg/dL (8.4-10.2); Carbon Dioxide 24 mmol/L (22-29); Chloride 106 mmol/L (96-108); Estimated Glomerular Filt Rate > 60; Free T4 (Free Thyroxine) 0.98 ng/dL (0.71-1.85); Glucose Random 95 mg/dL (60-115); Potassium 4.2 mmol/L (3.3-5.1); Sodium 139 mmol/L (135-145); Thyroid Stimulating Hormone 1.69 uIU/mL (0.32-4.0); Total Protein 7.1 g/dL (6.5-8.0)
[2023-10-11 14:29] LABS: Insulin 9 uU/mL (2-29)
[2023-10-12 09:09] LABS: DHEA Sulfate 165 mcg/dL (15-205); Triiodothyronine T3 Free 3.6 pg/mL (2.3-4.2)
[2023-10-12 09:39] LABS: Thyroid Peroxidase Antibodies 3 IU/mL (<9)
== END 2023-10-11 09:57 | disposition home or self-care (01) ==
LOC: HO.MANLDS 09:56
PROVIDERS: Visit Provider Physician Assistant
DX: R73.01 Impaired fasting glucose (principal); R63.5 Abnormal weight gain
CPT/HCPCS: 36415; 80053; 82627; 83036; 83525; 84439; 84443; 84481; 85025; 86376

== ENCOUNTER 2023-10-19 10:55 | Emergency (ER) | payer MEDICAID, SELFPAY ==
--- NOTE | ~2023-10-19 | CT_ITS ---
EXAMINATION: CT ABDOMEN AND PELVIS WITHOUT CONTRAST CLINICAL INFORMATION: severe tenderness, distention, melena COMPARISON: CT scan abdomen pelvis May 29, 2022 TECHNIQUE: Multidetector volumetric imaging was performed from the superior aspect of the liver through the pubic symphysis. Sagittal and coronal reformatted images were obtained on the technologist's workstation. This CT examination was performed using dose optimization techniques as appropriate, variously including the following: *Automated exposure control *Adjustment of mA and/or kV according to patient size (this includes techniques or standardized protocols for targeted exams where dose is matched to indication/reason for exam; i.e. extremities or head) *Use of iterative reconstruction technique DLP: 961 mGy-cm FINDINGS: LUNG BASES: The visualized lung bases are unremarkable. LIVER, GALLBLADDER, AND BILIARY TREE: The liver is normal in size, shape, and attenuation. No focal hepatic lesion or biliary ductal dilatation is present. The gallbladder is unremarkable with no evidence of radiopaque gallstones, gallbladder wall thickening, or obvious pericholecystic inflammatory changes. PANCREAS: Unremarkable. SPLEEN: Unremarkable. ADRENAL GLANDS: Unremarkable. KIDNEYS AND URETERS: Nonobstructive 3 mm stone lower pole right kidney. No stone in the left kidney. There is no hydronephrosis. No ureteral calculus. Kidneys are normal size and contour with normal cortical thickness. BLADDER: Unremarkable. GASTROINTESTINAL TRACT: The small and large bowel are unremarkable. The appendix is nonvisualized. No inflammation the mesentery.. ABDOMINAL WALL: No significant hernia is appreciated. LYMPH NODES: Normal. VASCULAR: Unremarkable. PELVIC VISCERA: Unremarkable. OSSEOUS STRUCTURES: Unremarkable. CT/CT abdomen pelvis wo IV con IMPRESSION: 1. No acute abnormality CT scan abdomen pelvis. 2. Nonobstructive 3 mm stone lower pole right kidney. Fleischner guidelines were followed.
--- NOTE | 2023-10-19 11:28 | ED_ITS ---
HPI - GI Bleed General Chief complaint: GI Bleed Stated complaint: Black/bloody stool Time Seen by Provider: 10/19/23 13:46 Related Data Home Medications ?Medication ?Instructions ?Recorded ?Confirmed albuterol sulfate 90 mcg/actuation 1 puff inhalation QID 07/02/20 07/07/22 aerosol inhaler (ProAir HFA) clonazepam 0.5 mg tablet 0.5 mg PO QID PRN 07/02/20 07/07/22 ibuprofen 800 mg tablet 800 mg PO Q8H 01/14/21 07/07/22 tramadol 50 mg tablet 50 mg PO Q6H 01/14/21 07/07/22 duloxetine 30 mg capsule,delayed 30 mg PO DAILY 07/07/22 07/07/22 release Previous Rx's ?Medication ?Instructions ?Recorded cock up wrist splint #1 ea 01/14/21 pyridoxine (vitamin B6) 100 mg 100 mg PO DAILY 90 days #90 tabs 07/07/22 tablet methylcellulose (laxative) 500 mg 500 mg PO DAILY #90 tabs 09/17/22 tablet (Citrucel) sennosides 8.6 mg tablet (Natural 8.6 mg PO BEDTIME constipation #90 09/17/22 Senna Laxative) tabs cholecalciferol (vitamin D3) 50 50 mcg PO DAILY #90 caps 10/01/22 mcg (2,000 unit) capsule cephalexin 500 mg capsule 500 mg PO 1XD 7 days #7 caps 06/20/23 doxycycline hyclate 100 mg capsule 100 mg PO BID 7 days #14 caps 06/20/23 hydrocodone 5 mg-acetaminophen 325 1 tab PO Q6H PRN pain #10 tabs 06/20/23 mg tablet Allergies Allergy/AdvReac Type Severity Reaction Status Date / Time bupropion [From WELLBUTRIN] Allergy Severe TACHYCARDIA Verified 10/19/23 11:31 losartan Allergy rash/swelling/blurred Verified 10/19/23 11:31 vision PMFSH Past Medical History Medical History Sleep apnea Dissociative identity disorder PTSD (post-traumatic stress disorder) Anxiety Depression Asthma Polyarthralgia Surgical History H/O tubal ligation Hx of cholecystectomy History of tonsillectomy Family History Family History Mother Acute arthritis Breast cancer Stomach cancer Father Chronic lymphocytic leukemia (CLL), B-cell HTN (hypertension) Acromioclavicular joint arthritis Social History Social History Household Members: Children Alcohol intake: current Alcohol intake frequency: a few times a week Patient Tobacco Use Status: Current everyday Tobacco user Cigarettes Per Day: 5 Substance Use Type: Marijuana Advance Directives: No Advance Directives Information Provided: Yes Physical Exam 2 Vital Signs: Vital Signs: Last Vital Signs Temp 98.2 F 10/19/23 16:33 Pulse 82 10/19/23 16:33 Resp 18 10/19/23 16:33 BP 194/93 H 10/19/23 16:33 Pulse Ox 92 10/19/23 16:33 O2 Del Method Room Air 10/19/23 16:33 BMI result Body Mass Index 47.8 Course Course Course Narrative: This is a Rapid Medical Examination (RME) performed by Harjeet Trent PA-C in triage. Full HPI, ROS, assessment and treatment plan per primary provider in the Main ED. 42 y/o female with history of fibromyalgia, s/p cholecystectomy who presents to the ER for evaluation of abdominal pain 3-4 days ago, dizziness & nausea along with new onset black stool mixed with red blood that started this morning. She has significant abdominal distention that started this morning with rectal pressure. Patient had 2 episodes of black stools. She denies history of UGIB bleed in the past. Has never had a colonoscopy. She is on NSAIDs (almost daily). In triage patient uncomfortable, abd is distended and diffusely tender, more on the right side with guarding and rebound. +bowel sounds. Plan: labs, CT scan abd/pelvis now. Reevaluation(s) Reevaluation #1: see SANDY Guzmán's note for full assessment and plan Medications Administered Discontinued Medications Generic Name Dose Route Start Last Admin Trade Name Freq PRN Reason Stop Dose Admin Sodium Chloride 1,000 mls @ 999 mls/hr 10/19/23 14:00 10/19/23 15:25 Ns IV 10/19/23 15:00 Infused .Q1H1M BEATRIZ Infusion Morphine Sulfate 6 mg 10/19/23 13:52 10/19/23 14:03 Morphine Sulfate 10 Mg/Ml Cartridge IVPUSH 10/19/23 13:53 6 mg ONCE ONE Administration Protocol Ondansetron HCl 4 mg 10/19/23 13:52 10/19/23 14:03 Ondansetron Hcl 4 Mg/2 Ml Vial IVPUSH 10/19/23 13:53 4 mg ONCE ONE Administration Medical Decision Making Lab Data 10/19/23 12:00 10/19/23 12:00 Labs: Lab Results 10/19/23 10/19/23 Range/Units 12:00 12:50 WBC 10.9 H (4.8-10.8) X10*3/uL RBC 4.97 (4.20-5.50) X10*6/uL Hgb 14.2 (12.0-16.0) g/dl Hct 44.4 (37.0-47.0) % MCV 89.3 (80.0-98.0) fL MCH 28.6 (27.0-33.0) pg MCHC 32.0 (31.0-35.0) g/dl RDW 13.6 (11.0-16.0) % Plt Count 222 (160-400) X10*3/uL MPV 10.5 (9.4-12.3) fL Immature Gran % (Auto) 0.7 H (0.0-0.4) % Neut % (Auto) 69.2 (45-73) % Lymph % (Auto) 21.2 (20-40) % [place] % (Auto) 5.5 (2-11) % Eos % (Auto) 3.2 (0-4) % Baso % (Auto) 0.2 (0-2) % Lymph # (Auto) 2.3 (1.2-4.9) X10*3/uL [place] # (Auto) 0.6 (0.1-1.2) X10*3/uL Eos # (Auto) 0.4 (0.0-0.4) X10*3/uL Baso # (Auto) 0.0 (0.0-0.2) X10*3/uL Abs Immat Gran (auto) 0.08 H (0.00-0.03) X10*3/uL Absolute Neuts (auto) 7.6 (2.0-8.3) x10*3/uL Absolute Nucleated RBC 0.000 (0.0-0.012) X10*3/uL Nucleated RBC % (auto) 0.0 (0.0-0.2) /100WBC PT 10.9 L (11.1-13.3) SEC INR 0.9 (0.9-1.1) APTT 27.9 (26.0-36.8) SEC Sodium 141 (135-145) mmol/L Potassium 4.0 (3.3-5.1) mmol/L Chloride 107 (96-108) mmol/L Carbon Dioxide 28 (22-29) mmol/L Anion Gap 10 L (12-20) BUN 11 (9-16) mg/dL Creatinine 0.67 (0.5-1.4) mg/dL Estim Creat Clear Calc 132.4 Estimated GFR > 60 Random Glucose 99 (60-115) mg/dL Calcium 9.4 (8.4-10.2) mg/dL Magnesium 1.9 (1.6-2.6) mg/dL Total Bilirubin 0.2 (0.0-1.0) mg/dL Direct Bilirubin < 0.2 (0.0-0.5) mg/dL AST 14 (5-31) U/L ALT 15 (0-31) U/L Alkaline Phosphatase 60 (39-117) U/L Troponin I High Sens 3.1 (<3.5-17.0) ng/L Total Protein 7.1 (6.5-8.0) g/dL Albumin 3.9 (3.5-5.0) g/dL Lipase 46 (8-78) U/L Urine Color Yellow Urine Appearance Clear Urine pH 5.5 (5.0-9.0) Ur Specific [place] 1.020 (1.005-1.025) Urine Protein Negative (Neg-Trace) mg/dL Urine Glucose (UA) Negative (Negative) mg/dL Urine Ketones Negative (Negative) mg/dL Urine Blood Negative (Negative) Urine Nitrite Negative (Negative) Ur Leukocyte Esterase Negative (Negative) Discharge Plan Discharge Clinical Impression: Constipation Patient Disposition: Home, Self-Care Instructions: Constipation (ED) Additional Instructions: All other labs were normal, there was no acute process on the CT other than you were found to be constipated. See home care instructions. You should start using an [id number]-[id number] stool softener such as Colace, 1-2 times daily. In addition, you can use [id number] MiraLax, per package instructions, to be used every 30 minutes to an hour, until you begin having multiple large volume bowel movements. When you clear your current stool burden, you should stay on at least a stool softener to help prevent further constipation. Follow up with your primary care provider as needed. Prescriptions: No Action cholecalciferol (vitamin D3) 50 mcg (2,000 unit) capsule 50 mcg PO DAILY Qty: 90 1RF doxycycline hyclate 100 mg capsule 100 mg PO BID 7 Days Qty: 14 0RF hydrocodone-acetaminophen 5-325 mg tablet 1 tab PO Q6H PRN (Reason: pain) Qty: 10 0RF Rx Instructions: partial fill okay; Partial Fill upon patient request. cephalexin 500 mg capsule 500 mg PO 1XD 7 Days Qty: 7 0RF clonazepam 0.5 mg tablet 0.5 mg PO QID PRN albuterol sulfate [ProAir HFA] 90 mcg/actuation HFA aerosol inhaler 1 puff inhalation QID tramadol 50 mg tablet 50 mg PO Q6H ibuprofen 800 mg tablet 800 mg PO Q8H (DME) cock up wrist splint See Rx Instructions .Route .MEDSUPPLY Qty: 1 0RF Rx Instructions: As directed, wear at night. duloxetine 30 mg capsule,delayed release(DR/EC) 30 mg PO DAILY pyridoxine (vitamin B6) 100 mg tablet 100 mg PO DAILY 90 Days Qty: 90 1RF Citrucel 500 mg tablet 500 mg PO DAILY Qty: 90 2RF Rx Instructions: take it with full glass of water sennosides [Natural Senna Laxative] 8.6 mg tablet 8.6 mg PO BEDTIME Qty: 90 3RF Interventions: ED Discharge Assessment Last Done: 10/19/23 16:33 Discharge Date/Time: 10/19/23 16:33 Print Language: Burkinan
[2023-10-19 11:30] VITALS: BP 189/99; PULSE 94; RESP 20; TEMP 36.8; O2SAT 97; BMI 47.8
--- NOTE | 2023-10-19 11:33 | ECG_ITS ---
Test Reason : PALPATATIONS Blood Pressure : / mmHG Vent. Rate : 089 BPM Atrial Rate : 089 BPM P-R Int : 160 ms QRS Dur : 084 ms QT Int : 350 ms P-R-T Axes : 061 084 006 degrees QTc Int : 425 ms Normal sinus rhythm T wave abnormality, consider inferior ischemia Abnormal ECG No previous ECGs available Referred By: Roseline Trent Electronically Signed By:Jalen Mehta
[2023-10-19 12:10] LABS: MANUAL DIFF FLAG NO
[2023-10-19 12:12] LABS: Basophils Percent Auto 0.2 % (0-2); Eosinophils Absolute Auto 0.4 X10*3/uL (0.0-0.4); Eosinophils Percent Auto 3.2 % (0-4); Hematocrit 44.4 % (37.0-47.0); Hemoglobin 14.2 g/dl (12.0-16.0); Imm Gran Abs Auto 0.08 X10*3/uL (0.00-0.03); Imm Gran Pct Auto 0.7 % (0.0-0.4); Lymphocytes Absolute Auto 2.3 X10*3/uL (1.2-4.9); Lymphocytes Percent Auto 21.2 % (20-40); Mean Corpuscular Hemoglobin 28.6 pg (27.0-33.0); Mean Corpuscular Volume 89.3 fL (80.0-98.0); Mean Platelet Volume 10.5 fL (9.4-12.3); Monocytes Absolute Auto 0.6 X10*3/uL (0.1-1.2); Monocytes Percent Auto 5.5 % (2-11); Neutrophils Absolute Auto 7.6 x10*3/uL (2.0-8.3); Neutrophils Percent Auto 69.2 % (45-73); Platelet Count 222 X10*3/uL (160-400); Red Blood Count 4.97 X10*6/uL (4.20-5.50); Red Cell Distribution Width 13.6 % (11.0-16.0); White Blood Count 10.9 X10*3/uL (4.8-10.8)
[2023-10-19 12:17] LABS: INTERNATIONAL NORM RATIO 0.9 (0.9-1.1); Prothrombin Time 10.9 SEC (11.1-13.3)
[2023-10-19 12:20] LABS: Partial Thromboplastin Time 27.9 SEC (26.0-36.8)
[2023-10-19 12:30] LABS: Alanine Aminotransferase 15 U/L (0-31); Albumin Level 3.9 g/dL (3.5-5.0); Alkaline Phosphatase 60 U/L (39-117); Anion Gap 10 (12-20); Aspartate Amino Transferase 14 U/L (5-31); Bilirubin Direct < 0.2 mg/dL (0.0-0.5); Bilirubin Total 0.2 mg/dL (0.0-1.0); Blood Urea Nitrogen 11 mg/dL (9-16); Calcium 9.4 mg/dL (8.4-10.2); Carbon Dioxide 28 mmol/L (22-29); Chloride 107 mmol/L (96-108); Creatinine Clr Calc Pharmacy 132.4; Estimated Glomerular Filt Rate > 60; Glucose Random 99 mg/dL (60-115); Lipase 46 U/L (8-78); Magnesium 1.9 mg/dL (1.6-2.6); Sodium 141 mmol/L (135-145); Total Protein 7.1 g/dL (6.5-8.0)
[2023-10-19 12:36] LABS: Troponin-I High Sensitivity 3.1 ng/L (<3.5-17.0)
[2023-10-19 12:39] VITALS: BP 180/118; BP 185/95; PULSE 90; PULSE 93
[2023-10-19 12:40] VITALS: BP 169/89; PULSE 92
[2023-10-19 13:05] LABS: Appearance Urine Clear; Color Urine Yellow; Glucose Urine UA Negative (Negative); Leukocyte Esterase Urine Negative (Negative); Nitrite Urine Negative (Negative); PH 5.5 (5.0-9.0); Urine Blood Negative (Negative); Urine Ketones Negative (Negative); Urine Protein Negative (Neg-Trace)
[2023-10-19 14:03] VITALS: RESP 15
[2023-10-19] MEDS: ondansetron HCL 4 MG/2 ML VIAL IVPUSH (14:03)
[2023-10-19] MEDS: 0.9 % Sodium Chloride 1,000 ML 999 ML IV (14:03)
[2023-10-19] MEDS: Morphine Sulfate 10 MG/ML CARTRIDGE 6 MG IVPUSH (14:03)
[2023-10-19 14:14] VITALS: BP 194/93; PULSE 82; RESP 18; TEMP 36.8; O2SAT 92
--- NOTE | 2023-10-19 16:18 | ED_ITS ---
HPI - General Adult General Chief complaint: GI Bleed Stated complaint: Black/bloody stool Time Seen by Provider: 10/19/23 13:46 Source: patient Limitations: no limitations History of Present Illness ED Provider: Arin Guzmán PA-C HPI narrative: 42-year-old female with history of morbid obesity, fibromyalgia and kidney stones presents with abdominal pain x4 days. Pain is diffuse, with associated abdominal distention. Patient unable to describe the nature of her discomfort. Associated nausea, vomiting. Patient states she is having regular bowel movements, however she feels that her stool is dark in color, no bright red blood per rectum. Denies dysuria, hematuria, fever. Denies inability to pass flatus. Related Data Home Medications ?Medication ?Instructions ?Recorded ?Confirmed albuterol sulfate 90 mcg/actuation 1 puff inhalation QID 07/02/20 07/07/22 aerosol inhaler (ProAir HFA) clonazepam 0.5 mg tablet 0.5 mg PO QID PRN 07/02/20 07/07/22 ibuprofen 800 mg tablet 800 mg PO Q8H 01/14/21 07/07/22 tramadol 50 mg tablet 50 mg PO Q6H 01/14/21 07/07/22 duloxetine 30 mg capsule,delayed 30 mg PO DAILY 07/07/22 07/07/22 release Previous Rx's ?Medication ?Instructions ?Recorded cock up wrist splint #1 ea 01/14/21 pyridoxine (vitamin B6) 100 mg 100 mg PO DAILY 90 days #90 tabs 07/07/22 tablet methylcellulose (laxative) 500 mg 500 mg PO DAILY #90 tabs 09/17/22 tablet (Citrucel) sennosides 8.6 mg tablet (Natural 8.6 mg PO BEDTIME constipation #90 09/17/22 Senna Laxative) tabs cholecalciferol (vitamin D3) 50 50 mcg PO DAILY #90 caps 10/01/22 mcg (2,000 unit) capsule cephalexin 500 mg capsule 500 mg PO 1XD 7 days #7 caps 06/20/23 doxycycline hyclate 100 mg capsule 100 mg PO BID 7 days #14 caps 06/20/23 hydrocodone 5 mg-acetaminophen 325 1 tab PO Q6H PRN pain #10 tabs 06/20/23 mg tablet Allergies Allergy/AdvReac Type Severity Reaction Status Date / Time bupropion [[facility] Allergy Severe TACHYCARDIA Verified 10/19/23 11:31 losartan Allergy rash/swelling/blurred Verified 10/19/23 11:31 vision Review of Systems 2 Review of Systems: Yes all other systems are reviewed and are negative Constitutional: Constitutional: Denies fever(s) Cardiovascular: Cardiovascular: Denies chest pain and Denies dyspnea Respiratory: Respiratory: Denies dyspnea Gastrointestinal: Gastrointestinal: Reports abdominal pain, Reports bloating, Reports nausea and Reports vomiting Genitourinary: Genitourinary: Denies hematuria, Denies dysuria and Denies flank pain [facility] Past Medical History Attestation statement: The following information was validated with the patient. Medical History Sleep apnea Dissociative identity disorder PTSD (post-traumatic stress disorder) Anxiety Depression Asthma Polyarthralgia Surgical History H/O tubal ligation Hx of cholecystectomy History of tonsillectomy Family History Family History Mother Acute arthritis Breast cancer Stomach cancer Father Chronic lymphocytic leukemia (CLL), B-cell HTN (hypertension) Acromioclavicular joint arthritis Social History Social History Household Members: Children Alcohol intake: current Alcohol intake frequency: a few times a week Patient Tobacco Use Status: Current everyday Tobacco user Cigarettes Per Day: 5 Substance Use Type: Marijuana Advance Directives: No Advance Directives Information Provided: Yes Physical Exam ED Vital Signs: Vital Signs - 24 hr 10/19/23 11:30 10/19/23 12:39 10/19/23 12:39 Temperature 98.2 F Pulse Rate 94 90 93 Respiratory Rate 20 Blood Pressure 189/99 H 185/95 H 180/118 H Pulse Oximetry 97 Oxygen Delivery Method Room Air 10/19/23 12:40 10/19/23 14:03 10/19/23 14:14 Temperature 98.2 F Pulse Rate 92 82 Respiratory Rate 15 18 Blood Pressure 169/89 H 194/93 H Pulse Oximetry 92 Oxygen Delivery Method Room Air BMI result Body Mass Index 47.8 Const Other: Alert, awake, appears older than stated age Orientation/consciousness: patient oriented x3 Resp Other: Nonlabored respiration Cardio Other: Normal peripheral perfusion GI Other: Abdomen is grossly distended and tympanic, generalized tenderness to palpation with mild involuntary guarding, no focal regions of pain Skin Other: Warm dry no rash Neuro General: patient oriented x3, no focal motor deficits and CN's II-XI intact bilaterally Psych Other: Calm cooperative Course Course Course Narrative: I have independently reviewed the following tests: Labs: No leukocytosis, not anemic no electrolyte abnormality CT abdomen and pelvis: No acute process, patient is constipated Medications Administered Discontinued Medications Generic Name Dose Route Start Last Admin Trade Name Kirillq PRN Reason Stop Dose Admin Sodium Chloride 1,000 mls @ 999 mls/hr 10/19/23 14:00 10/19/23 15:25 Ns IV 10/19/23 15:00 Infused .Q1H1M BEATRIZ Infusion Morphine Sulfate 6 mg 10/19/23 13:52 10/19/23 14:03 Morphine Sulfate 10 Mg/Ml Cartridge IVPUSH 10/19/23 13:53 6 mg ONCE ONE Administration Protocol Ondansetron HCl 4 mg 10/19/23 13:52 10/19/23 14:03 Ondansetron Hcl 4 Mg/2 Ml Vial IVPUSH 10/19/23 13:53 4 mg ONCE ONE Administration Medical Decision Making Medical Decision Making [facility] Narrative: I have independently reviewed the following tests: 42-year-old female with history of morbid obesity, fibromyalgia and kidney stones presents with abdominal pain x4 days. Pain is diffuse, with associated abdominal distention. Patient unable to describe the nature of her discomfort. Associated nausea, vomiting. Patient states she is having regular bowel movements, however she feels that her stool is dark in color, no bright red blood per rectum. Denies dysuria, hematuria, fever. Denies inability to pass flatus. Problem: Morbid obesity, fibromyalgia, kidney stones History: Per patient I have considered the following differential diagnoses: Bowel obstruction, perforated viscus, renal colic Plan: Given the nature of the patient's exam, I am most concerned for a bowel obstruction. Her abdomen is grossly distended. Screening labs and process, we will obtain a CT. Giving IV fluid, pain medicine and antiemetic. Thought about renal colic, however her presentation is not consistent with such, adding a UA. Due to the grossly distended and tympanic abdomen, I have considered perforated viscus, however she is not truly peritonitic, she is well in appearance, and overall is well in appearance. I have independently reviewed the following tests: Labs: No leukocytosis, not anemic, no electrolyte abnormality CT abdomen and pelvis:EXAMINATION: CT ABDOMEN AND PELVIS WITHOUT CONTRAST CLINICAL INFORMATION: severe tenderness, distention, melena COMPARISON: CT scan abdomen pelvis May 29, 2022 TECHNIQUE: Multidetector volumetric imaging was performed from the superior aspect of the liver through the pubic symphysis. Sagittal and coronal reformatted images were obtained on the technologist's workstation. This CT examination was performed using dose optimization techniques as appropriate, variously including the following: *Automated exposure control *Adjustment of mA and/or kV according to patient size (this includes techniques or standardized protocols for targeted exams where dose is matched to indication/reason for exam; i.e. extremities or head) *Use of iterative reconstruction technique DLP: 961 mGy-cm FINDINGS: LUNG BASES: The visualized lung bases are unremarkable. LIVER, GALLBLADDER, AND BILIARY TREE: The liver is normal in size, shape, and attenuation. No focal hepatic lesion or biliary ductal dilatation is present. The gallbladder is unremarkable with no evidence of radiopaque gallstones, gallbladder wall thickening, or obvious pericholecystic inflammatory changes. PANCREAS: Unremarkable. SPLEEN: Unremarkable. ADRENAL GLANDS: Unremarkable. KIDNEYS AND URETERS: Nonobstructive 3 mm stone lower pole right kidney. No stone in the left kidney. There is no hydronephrosis. No ureteral calculus. Kidneys are normal size and contour with normal cortical thickness. BLADDER: Unremarkable. GASTROINTESTINAL TRACT: The small and large bowel are unremarkable. The appendix is nonvisualized. No inflammation the mesentery.. ABDOMINAL WALL: No significant hernia is appreciated. LYMPH NODES: Normal. VASCULAR: Unremarkable. PELVIC VISCERA: Unremarkable. OSSEOUS STRUCTURES: Unremarkable. CT/CT abdomen pelvis wo IV con IMPRESSION: 1. No acute abnormality CT scan abdomen pelvis. 2. Nonobstructive 3 mm stone lower pole right kidney. Fleischner guidelines were followed. Lab Data 10/19/23 12:00 10/19/23 12:00 Labs: Lab Results 10/19/23 10/19/23 Range/Units 12:00 12:50 WBC 10.9 H (4.8-10.8) X10*3/uL RBC 4.97 (4.20-5.50) X10*6/uL Hgb 14.2 (12.0-16.0) g/dl Hct 44.4 (37.0-47.0) % MCV 89.3 (80.0-98.0) fL MCH 28.6 (27.0-33.0) pg MCHC 32.0 (31.0-35.0) g/dl RDW 13.6 (11.0-16.0) % Plt Count 222 (160-400) X10*3/uL MPV 10.5 (9.4-12.3) fL Immature Gran % (Auto) 0.7 H (0.0-0.4) % Neut % (Auto) 69.2 (45-73) % Lymph % (Auto) 21.2 (20-40) % [place] % (Auto) 5.5 (2-11) % Eos % (Auto) 3.2 (0-4) % Baso % (Auto) 0.2 (0-2) % Lymph # (Auto) 2.3 (1.2-4.9) X10*3/uL [place] # (Auto) 0.6 (0.1-1.2) X10*3/uL Eos # (Auto) 0.4 (0.0-0.4) X10*3/uL Baso # (Auto) 0.0 (0.0-0.2) X10*3/uL Abs Immat Gran (auto) 0.08 H (0.00-0.03) X10*3/uL Absolute Neuts (auto) 7.6 (2.0-8.3) x10*3/uL Absolute Nucleated RBC 0.000 (0.0-0.012) X10*3/uL Nucleated RBC % (auto) 0.0 (0.0-0.2) /100WBC PT 10.9 L (11.1-13.3) SEC INR 0.9 (0.9-1.1) APTT 27.9 (26.0-36.8) SEC Sodium 141 (135-145) mmol/L Potassium 4.0 (3.3-5.1) mmol/L Chloride 107 (96-108) mmol/L Carbon Dioxide 28 (22-29) mmol/L Anion Gap 10 L (12-20) BUN 11 (9-16) mg/dL Creatinine 0.67 (0.5-1.4) mg/dL Estim Creat Clear Calc 132.4 Estimated GFR > 60 Random Glucose 99 (60-115) mg/dL Calcium 9.4 (8.4-10.2) mg/dL Magnesium 1.9 (1.6-2.6) mg/dL Total Bilirubin 0.2 (0.0-1.0) mg/dL Direct Bilirubin < 0.2 (0.0-0.5) mg/dL AST 14 (5-31) U/L ALT 15 (0-31) U/L Alkaline Phosphatase 60 (39-117) U/L Troponin I High Sens 3.1 (<3.5-17.0) ng/L Total Protein 7.1 (6.5-8.0) g/dL Albumin 3.9 (3.5-5.0) g/dL Lipase 46 (8-78) U/L Urine Color Yellow Urine Appearance Clear Urine pH 5.5 (5.0-9.0) Ur Specific [place] 1.020 (1.005-1.025) Urine Protein Negative (Neg-Trace) mg/dL Urine Glucose (UA) Negative (Negative) mg/dL Urine Ketones Negative (Negative) mg/dL Urine Blood Negative (Negative) Urine Nitrite Negative (Negative) Ur Leukocyte Esterase Negative (Negative) Discharge Plan Discharge Clinical Impression: Constipation Patient Disposition: Home, Self-Care Instructions: Constipation (ED) Additional Instructions: All other labs were normal, there was no acute process on the CT other than you were found to be constipated. See home care instructions. You should start using an [id number] stool softener such as Colace, 1-2 times daily. In addition, you can use [id number] MiraLax, per package instructions, to be used every 30 minutes to an hour, until you begin having multiple large volume bowel movements. When you clear your current stool burden, you should stay on at least a stool softener to help prevent further constipation. Follow up with your primary care provider as needed. Prescriptions: No Action cholecalciferol (vitamin D3) 50 mcg (2,000 unit) capsule 50 mcg PO DAILY Qty: 90 1RF doxycycline hyclate 100 mg capsule 100 mg PO BID 7 Days Qty: 14 0RF hydrocodone-acetaminophen 5-325 mg tablet 1 tab PO Q6H PRN (Reason: pain) Qty: 10 0RF Rx Instructions: partial fill okay; Partial Fill upon patient request. cephalexin 500 mg capsule 500 mg PO 1XD 7 Days Qty: 7 0RF clonazepam 0.5 mg tablet 0.5 mg PO QID PRN albuterol sulfate [ProAir HFA] 90 mcg/actuation HFA aerosol inhaler 1 puff inhalation QID tramadol 50 mg tablet 50 mg PO Q6H ibuprofen 800 mg tablet 800 mg PO Q8H (DME) cock up wrist splint See Rx Instructions .Route .MEDSUPPLY Qty: 1 0RF Rx Instructions: As directed, wear at night. duloxetine 30 mg capsule,delayed release(DR/EC) 30 mg PO DAILY pyridoxine (vitamin B6) 100 mg tablet 100 mg PO DAILY 90 Days Qty: 90 1RF Citrucel 500 mg tablet 500 mg PO DAILY Qty: 90 2RF Rx Instructions: take it with full glass of water sennosides [Natural Senna Laxative] 8.6 mg tablet 8.6 mg PO BEDTIME Qty: 90 3RF Interventions: ED Discharge Assessment Last Done: 10/19/23 16:33 Discharge Date/Time: 10/19/23 16:33 Print Language: Zambian
[2023-10-19 16:33] VITALS: BP 194/93; PULSE 82; RESP 18; TEMP 36.8; O2SAT 92
== END 2023-10-19 16:33 | disposition home or self-care (01) ==
PROVIDERS: Physician Assistant; Emergency Provider Emergency Medicine; PCP Internal Medicine
DX: K92.2 Gastrointestinal hemorrhage, unspecified (principal); R00.2 Palpitations; Z79.899 Other long term (current) drug therapy
CPT/HCPCS: 36415; 74176; 80048; 80076; 81003; 83690; 83735; 84484; 85025; 85610; 85730; 93005; 99284; J2270; J2405

== ENCOUNTER → 2023-10-19 11:33 | Outpatient (BNV) | payer MEDICAID, SELFPAY | PROVIDERS: Emergency Provider Emergency Medicine; PCP Internal Medicine; Visit Provider Internal Medicine Cardiovascular Disease | DX: R00.2 Palpitations (principal) | CPT/HCPCS: 93010 ==

== ENCOUNTER 2025-01-02 23:39 | Emergency (ER) | payer MEDICAID, SELFPAY ==
[2025-01-02 23:44] VITALS: BP 190/100; PULSE 108; O2SAT 97
[2025-01-02 23:45] VITALS: BP 207/97; PULSE 100; RESP 18; TEMP 36.1; O2SAT 98; BMI 50.1
--- NOTE | 2025-01-03 00:01 | ECG_ITS ---
Test Reason : HTN Blood Pressure : */* mmHG Vent. Rate : 91 BPM Atrial Rate : 91 BPM P-R Int : 154 ms QRS Dur : 84 ms QT Int : 370 ms P-R-T Axes : 68 84 38 degrees QTcB Int : 455 ms Normal sinus rhythm Right atrial enlargement T wave abnormality, consider inferior ischemia Abnormal ECG When compared with ECG of 19-Oct-2023 11:51, Nonspecific T wave abnormality no longer evident in Anterior leads Referred By: Generic ED Physician Electronically Signed By: Jalen Mehta
[2025-01-03 00:23] LABS: MANUAL DIFF FLAG NO
[2025-01-03 00:27] LABS: Hematocrit 44.9 % (37.0-47.0); Hemoglobin 14.0 g/dl (12.0-16.0); Imm Gran Abs Auto 0.05 X10*3/uL (0.00-0.03); Imm Gran Pct Auto 0.4 % (0.0-0.4); Lymphocytes Absolute Auto 2.7 X10*3/uL (1.2-4.9); Mean Corpuscular HGB Conc 31.2 g/dl (31.0-35.0); Mean Corpuscular Hemoglobin 27.9 pg (27.0-33.0); Mean Corpuscular Volume 89.6 fL (80.0-98.0); NRBC Abs Auto 0.000 X10*3/uL (0.0-0.012); NRBC Pct Auto 0.0 /100WBC (0.0-0.2); Platelet Count 229 X10*3/uL (160-400); Red Blood Count 5.01 X10*6/uL (4.20-5.50); White Blood Count 11.4 X10*3/uL (4.8-10.8)
[2025-01-03 00:45] LABS: Alanine Aminotransferase 23 U/L (0-31); Albumin Level 3.9 g/dL (3.5-5.0); Alkaline Phosphatase 63 U/L (39-117); Anion Gap 12 (12-20); Aspartate Amino Transferase 22 U/L (5-31); Blood Urea Nitrogen 16 mg/dL (9-16); Calcium 9.3 mg/dL (8.4-10.2); Carbon Dioxide 28 mmol/L (22-29); Chloride 107 mmol/L (96-108); Creatinine Clr Calc Pharmacy 137.6; Estimated Glomerular Filt Rate > 60; Magnesium 1.7 mg/dL (1.6-2.6); Potassium 3.9 mmol/L (3.3-5.1); Sodium 143 mmol/L (135-145); Total Protein 6.9 g/dL (6.5-8.0)
[2025-01-03 00:48] LABS: Troponin-I High Sensitivity 7.2 ng/L (<3.5-17.0)
[2025-01-03 00:59] VITALS: BP 176/76; PULSE 91; RESP 13; O2SAT 98
--- NOTE | 2025-01-03 01:16 | ED_ITS ---
HPI - Anxiety General Chief Complaint: Anxiety Stated Complaint: Anxiety Attack Time Seen by Provider: 01/03/25 01:01 History of Present Illness HPI narrative: Patient is a 44-year-old female have a history of anxiety. Has not been taking her Klonopin. Presented today with having a panic attack. Patient's feels very short of breath. Got very anxious. Elected to come to the emergency department. There is some chest tightness. The symptoms started about 11:00. On arrival in the ED symptoms gradually improved. No fever no chills. No diaphoresis. No history of diabetes positive history of hypertension no history of high cholesterol not a smoker never had a heart attack history of fibromyalgia. He is not . Related Data Home Medications ?Medication ?Instructions ?Recorded ?Confirmed albuterol sulfate 90 mcg/actuation 1 puff inhalation Q ID 07/02/20 07/07/22 aerosol inhaler (ProAir HFA) clonazepam 0.5 mg tablet 0.5 mg PO QID PRN 07/02/20 0 07/07/22 ibuprofen 800 mg tablet 800 mg PO Q8H 01/14/2107/07 tramadol 50 mg tablet 50 mg PO Q6H 01/14/21 duloxetine 30 mg capsule,delayed 30 mg PO DAILY 07/07/22 release Previous Rx's ?Medication ?Instructions ?Recorded cock up wrist splint #1 ea 01/14/21 pyridoxine (vitamin B6) 100 mg 100 mg PO DAILY 90 days #90 tabs 07/07/22 tablet methylcellulose (laxative) 500 mg 500 mg PO DAILY #90 tabs 09/17/22 tablet (Citrucel) sennosides 8.6 mg tablet (Natural 8.6 mg PO BEDTIME co nstipation #90 09/17/22 Senna Laxative) tabs cholecalciferol (vitamin D3) 50 50 mcg PO DAILY #90 ca ps 10/01/22 mcg (2,000 unit) capsule cephalexin 500 mg capsule 500 mg PO 1XD 7 days #7 caps 06/20/23 doxycycline hyclate 100 mg capsule 100 mg PO BID 7 day s #14 caps 06/20/23 hydrocodone 5 mg-acetaminophen 325 1 tab PO Q6H PRN pa in #10 tabs 06/20/23 mg tablet Allergies Allergy/AdvReac Type Severity Reaction Status Date / Time bupropion (From WELLBUTRIN) Allergy Severe TACHYCARDIA Verified 01/02/25 23:57 losartan Allergy rash/swelling/blurred Verified 01/02/25 23:57 vision Review of Systems 2 Review of Systems: Positive anxiety Positive high blood pressure Yes all other systems are reviewed and are negative [facility] Past Medical History Attestation statement: The following information was validated with the patient. Medical History Sleep apnea Dissociative identity disorder PTSD (post-traumatic stress disorder) Anxiety Depression Asthma Polyarthralgia Surgical History H/O tubal ligation Hx of cholecystectomy History of tonsillectomy Family History Family History Mother Acute arthritis Breast cancer Stomach cancer Father Chronic lymphocytic leukemia (CLL), B-cell HTN (hypertension) Acromioclavicular joint arthritis Social History Social History Household Members: Children Alcohol intake: current Alcohol intake frequency: holidays/special occasions only Patient Tobacco Use Status: Current everyday Tobacco user Cigarettes Per Day: 5 Smoked in Last 30 Days: Yes Substance Use Type: Marijuana Do you have a plan to hurt others: No Plan Patient : No Physical Exam 2 Exam: Exam: Appearance: Alert. Oriented X3. No acute distress. Eyes: Pupils equal, round and reactive to light. ENT: Pharynx normal. Neck: Normal inspection. Neck supple. No lymph nodes noted. No crepitus CVS: Normal heart rate and rhythm. Pulses normal. Normal S1 and S2 Respiratory: No respiratory distress. Breath sounds normal. No Wheezing. No rales Abdomen: Soft and nontender. No rigidity. No distention. good BS x4 Skin: Skin warm and dry. Normal skin color. Normal skin turgor. Extremities: No lower extremity edema. Neurovascular intact to all extremities. No Lacerations. No Rash Neuro: Oriented X 3. No motor deficit. No sensory deficit. Moving all extermities. No slurred speech Vital Signs: Vital Signs: Last Vital Signs Temp 97 F 01/02/25 23:45 Pulse 91 01/03/25 00:59 Resp 13 01/03/25 00:59 BP 176/76 H 01/03/25 00:59 Pulse Ox 98 01/03/25 00:59 O2 Del Method Nasal Cannula 01/03/25 00:59 BMI result Body Mass Index 50.1 Medications Administered Discontinued Medications Generic Name Dose Route Start Last Admin Trade Name Kirillq PRN Reason Stop Dose Admin Clonazepam 1 mg 01/03/25 01:06 01/03/25 01:49 Clonazepam 1 Mg Tablet PO 01/03/25 01:07 1 mg ONCE ONE Administration Medical Decision Making Medical Decision Making MDM Narrative: Well-appearing no acute distress. Patient's O2 sats 99% on room air blood pressure initially was elevated with time as patient calm down blood pressure is now lower is 170/80 at this time. I reviewed patient's EKG showed a sinus rhythm heart rate was 90 SD QRS QTC normal no changes when compared to previous Differential Diagnosis Differential Diagnoses: The differential diagnosis associated with the presentation includes Anxiety, ACS, hypertension, PE Admission/Observation Consideration of admission/observation: Escalation of care including admission/observation considered Lab Data [facility] Lab Attestation statement: I reviewed the patient's lab results. 01/03/25 00:14 01/03/25 00:14 Labs: Lab Results 01/03/25 01/03/25 Range/Units 00:14 01:21 WBC 11.4 H (4.8-10.8) X10*3/uL RBC 5.01 (4.20-5.50) X10*6/uL Hgb 14.0 (12.0-16.0) g/dl Hct 44.9 (37.0-47.0) % MCV 89.6 (80.0-98.0) fL MCH 27.9 (27.0-33.0) pg MCHC 31.2 (31.0-35.0) g/dl RDW 13.8 (11.0-16.0) % Plt Count 229 (160-400) X10*3/uL MPV 10.4 (9.4-12.3) fL Immature Gran % (Auto) 0.4 (0.0-0.4) % Neut % (Auto) 64.2 (45-73) % Lymph % (Auto) 23.6 (20-40) % [place] % (Auto) 6.2 (2-11) % Eos % (Auto) 5.2 H (0-4) % Baso % (Auto) 0.4 (0-2) % Lymph # (Auto) 2.7 (1.2-4.9) X10*3/uL [place] # (Auto) 0.7 (0.1-1.2) X10*3/uL Eos # (Auto) 0.6 H (0.0-0.4) X10*3/uL Baso # (Auto) 0.0 (0.0-0.2) X10*3/uL Abs Immat Gran (auto) 0.05 H (0.00-0.03) X10*3/uL Absolute Neuts (auto) 7.3 (2.0-8.3) x10*3/uL Absolute Nucleated RBC 0.000 (0.0-0.012) X10*3/uL Nucleated RBC % (auto) 0.0 (0.0-0.2) /100WBC Sodium 143 (135-145) mmol/L Potassium 3.9 (3.3-5.1) mmol/L Chloride 107 (96-108) mmol/L Carbon Dioxide 28 (22-29) mmol/L Anion Gap 12 (12-20) BUN 16 (9-16) mg/dL Creatinine 0.65 (0.5-1.4) mg/dL Estim Creat Clear Calc 137.6 Estimated GFR > 60 Random Glucose 118 H (60-115) mg/dL Calcium 9.3 (8.4-10.2) mg/dL Magnesium 1.7 (1.6-2.6) mg/dL Total Bilirubin 0.1 (0.0-1.0) mg/dL AST 22 (5-31) U/L ALT 23 (0-31) U/L Alkaline Phosphatase 63 (39-117) U/L Troponin I High Sens 7.2 D 7.8 (<3.5-17.0) ng/L Total Protein 6.9 (6.5-8.0) g/dL Albumin 3.9 (3.5-5.0) g/dL Independent Interpretation I performed an independent interpretation of an: EKG (Sinus heart rate is 90 SD QRS QTC normal no acute ST segment elevation) Radiology Impression Discussion of test interpretation with radiology: I have reviewed the radiologist's reading. External Record Review External record reviewed: Outpatient record Chronic Conditions Anxiety, hypertension Social Determinants Patient?s care significantly limited by Social Determinants of Health including: Problems related to primary support group Discharge Plan Discharge Clinical Impression: Acute anxiety Patient Disposition: Home, Self-Care Instructions: Anxiety (ED) Prescriptions: No Action cholecalciferol (vitamin D3) 50 mcg (2,000 unit) capsule 50 mcg PO DAILY Qty: 90 1RF doxycycline hyclate 100 mg capsule 100 mg PO BID 7 Days Qty: 14 0RF hydrocodone-acetaminophen 5-325 mg tablet 1 tab PO Q6H PRN (Reason: pain) Qty: 10 0RF Rx Instructions: partial fill okay; Partial Fill upon patient request. cephalexin 500 mg capsule 500 mg PO 1XD 7 Days Qty: 7 0RF clonazepam 0.5 mg tablet 0.5 mg PO QID PRN albuterol sulfate [ProAir HFA] 90 mcg/actuation HFA aerosol inhaler 1 puff inhalation QID tramadol 50 mg tablet 50 mg PO Q6H ibuprofen 800 mg tablet 800 mg PO Q8H (DME) cock up wrist splint See Rx Instructions .Route .MEDSUPPLY Qty: 1 0RF Rx Instructions: As directed, wear at night. duloxetine 30 mg capsule,delayed release(DR/EC) 30 mg PO DAILY pyridoxine (vitamin B6) 100 mg tablet 100 mg PO DAILY 90 Days Qty: 90 1RF Citrucel 500 mg tablet 500 mg PO DAILY Qty: 90 2RF Rx Instructions: take it with full glass of water sennosides [Natural Senna Laxative] 8.6 mg tablet 8.6 mg PO BEDTIME Qty: 90 3RF Referrals: Physician,Unknown J [Primary Care Provider, Medical] - 01/05/25 Print Language: [place]
[2025-01-03 01:45] LABS: Troponin-I High Sensitivity 7.8 ng/L (<3.5-17.0)
[2025-01-03 02:02] VITALS: BP 165/79; PULSE 85; RESP 14; TEMP 36.6; O2SAT 98
--- OUTSIDE RECORDS SUMMARY | 2025-01-03 02:06 | XMS_ITS | Data Portability ---
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 09/20/2019 11:38:43 09/20/2019 12:21:43 Alopecia 55203736 L65.9 Worsening now Paroxysmal supraventricular tachycardia 73524039 I47.1 Diagnosed by event monitor Dec Having episodes of syncope/fa tigue Has been increasing in severity and incidence Need echo to r/o other etiology Bipolar disorder 4361479 4 F31.9 Lamotrigin e level low in past, need to recheck Dacryocystitis 62422434 H04.309 Has been ongoing chronicall y Infected now [id number] Andrzej Randolph [facility] Medicine [address],[place] [address] 03/19/2020 08:43:30 03/19/2020 15:17:34 Acute exacerbation of asthma 849935932 J45.901 already on pred taper from ER will add Z robert in for prevention of infection knows to call if oxygen sat drops below 90% Asthma 916572390 J45.90 9 needs pulm referral as her asthma is not under control and the risk of hospitaliz ation again Tight chest 90268390 R07 .89 ibu helps mildly, will see if stronger NSAID works better for pt instructed to take with food Dyspnea 073984112 R06.00 at rest and activity, though pulse sat is fine today [id number] Andrzej Randolph DO [facility] [address],[place] [address] 04/15/2020 08:40:50 04/15/2020 15:50:33 Chest pain 04985104 R07.9 will set up with cardio and echo for full work up to elevate patient Pain in le ft lower limb 589605646 M79.605 will work up patient for left leg pain she has been having, as it has been worked up twice now for DVT and r/o Asthma 309151880 J45.90 9 seeing pulmo for eval and treatment will send me consult notes Anxiety 62261507 F41.9 worsening, but patient not interested in changing medication s at this time Bipolar disorder 2522552 4 F31.9 not currently in a manic mood or depressive phase, will monitor closely mood may stabalize better if other conditions are appropriat magdi addressed Fibromyalgia 063285636 M 79.7 pain sounds very close to fibromyalg ia and rheum may better be able to treat her condition [id number] Andrzej Randolph [facility] Internal Medicine [address], [place] [address] 05/31/2020 11:43:45 05/31/2020 15:53:47 Palpitations 74606073 R00.2 holter was negative, will have her fu with cardio at her next appt and discuss after receiving consult note Fatigue 92668437 R53.83 will have her fu with psych, possible related to bipolar not controlled on medication Dizziness 127677647 R42 fu with cardio US carotid normal Neck pain 13069701 M54.2 will have her fu with XR Bipolar disorder 0630025 4 F31.9 not well controlled , will need to see psych as she has stopped all her meds without consult will start her on lexapro 5 mg as per hospital [id number] Andrzej Randolph [facility] [address], [place] [address] 07/09/2020 09:35:39 07/09/2020 14:52:16 Fibromyalgia 801257895 M79.7 will trial two new medication for fibromyalg ia treatment and fu with what works for her and what doesn't Palpitations 49061305 R0 0.2 cleared by cardiology will just monitor Sleep apnea 57530658 G47 .33 will be started on a CPAP machine due to severe sleep apnea from sleep medicine consult [id number] Andrzej Randolph [facility] Medicine [address], [place] [address] 09/13/2020 09:11:27 09/13/2020 09:30:49 Cough 72719822 R05 will start on tessalon perles and z robert Acute bronchitis 6391444 2 J20.8 has a fu next week [id number] Andrzej Randolph [facility] [address],[place] [address] 09/17/2020 08:07:10 09/17/2020 14:19:04 Asthma 470559525 J45.909 stable Acute exac erbation of asthma 892901908 J45.901 resolved Dental abscess 988220265 K04.7 the patient reports that she was seen in ER prior to last trip for dental abscesswas told to contact PCP for oral surgeon referralwi ll talk to sandro Anxiety 35164618 F41.9 worsening, but patient not interested in changing medication s at this time Chronic pain 64361108 G8 9.29 will treat with combinatio [place], [place] [id number] Andrzej Randolph [facility] [address], [place] [address] 12/23/2020 09:33:26 12/23/2020 12:17:03 Low back pain 412288554 M54.59 fu with XRs Pain of ri ght hip joint 7421595034 64077 M25.551 fu with XRs Pain in bi lateral feet 5737317902 1446455 M79.671 sent in referral for new turf manager Memory impairment 656173 006 R41.3 fu with neuro referral for eval of patient's concerns [id number] Andrzej Randolph [facility] [address],[place] [address] 04/09/2021 08:10:40 04/11/2021 13:20:17 Bipolar disorder 71666760 F31.10 doing well Paroxysmal supraventricular tachycardia 38760988 I47.1 stable Renal pain 378539656 N23 will fu with testing at [facility] to r/o UTI/kidney infection Lesion of skin of face 6824128545 06 L98.9 will fu with derm referral given family hx of skin cancer Family his tory of malignant neoplasm 964296080 Z80.9 will fu with genetic counselor given family hx [id number] Andrzej Randolph [facility] Medicine [address] [facility],[place] [address] 06/17/2021 13:23:48 06/18/2021 08:49:44 Cough 06843828 R05.1 will start on z robert and prednisone taper Acute bronchitis 5327605 2 J20.8 will start on pred and z robert for acute asthma flare up/bronchi tis Wheezing 13318904 R06.2 will start on prednisone for wheezingco ntinue on inhaler [id number] Andrzej Randolph [facility] [address], [place] [address] 07/14/2021 09:04:56 07/14/2021 11:22:23 Abdominal pain 88274783 R10.0 will fu GI referral as well per ER Atopic dermatitis 558678 01 L20.89 using topical steriodnee ds to fu with [facility] for testing for PCOS given increased hair growth Cyst of ovary 21642461 N 83.02 bilateral, is following up with [facility] [id number] Andrzej Randolph [facility] [address], [place] [address] 01/16/2022 14:01:04 01/19/2022 16:42:59 Allergic rhinitis 14446107 J30.1 needs refill Pre-surger y evaluation 976950446 Z01.818 The patient was seen in the office today for pre-op evaluation . All medical conditions on patient's problem list were addressed and are currently stable, no interventi on needed at this time. Based on history and physical performed, the patient is cleared for surgery. [id number] Andrzej Randolph [facility] [address],[place] [address] 04/29/2022 14:50:27 04/29/2022 16:36:02 Neck pain 34972646 M54.2 will have her f/u with XR for fall Pain of le ft shoulder joint 4692901451 3329225 M25.512 needs XR to r/o subluxatio n or fx Pain of le ft knee joint 7269691840 10073 M25.562 will fu with XR, concerned about meniscus tear may need MRI Pain in coccyx 35065045 M53.3 will fu with coccyx XR as well [id number] Andrzej Randolph [facility] Medicine [address],[place] [address] 08/25/2022 14:41:31 08/25/2022 15:42:25 Bipolar disorder 33038020 F31.10 stable Paroxysmal supraventricular tachycardia 14373090 I47.1 stable Pre-surger y evaluation 427058525 Z01.818 The patient was seen in the office today for pre-op evaluation . All medical conditions on patient's problem list were addressed and are currently stable, no interventi on needed at this time. Based on history and physical performed, the patient is cleared for surgery. Asthma 176911054 J45.20 stableneed s refill Chronic pain 71651425 G8 9.29 stableneed s refill [id number] Andrzej Randolph [facility] [address],[place] [address] 02/16/2023 15:20:41 02/16/2023 16:41:34 Asthma 253928066 J45.20 stableneed s refill Adult heal th examination 393096715 Z00.00 BP is stable Pain of ri ght knee joint 4928584041 10218 M25.561 will set up with MRI and knee brace Edema of l ower extremity 719329840 R60.0 agreed to vascular surgeon referral Dizziness 792974402 R42 fu with cardio US carotid normal Vertigo 297792137 R42 will trial the meclizine Palpitations 13348000 R0 0.2 cleared by cardiology will just monitor Hypertensive disorder 38 947966 I10 will set up with CBC and CMP Fatigue 56151216 R53.83 will have her fu with psych, possible related to bipolar not controlled on medication [id number] Andrzej Randolph [facility] [address], [address] [facility] [address] 03/29/2023 11:48:40 03/30/2023 08:04:54 Acute sinusitis 69630172 J01.01 start on z robert and pred for combinatio n exacerbati on symptoms Acute bronchitis 5207947 2 J20.8 will start on pred and z robert for acute asthma flare up/bronchi tis which is common for patient this time of year Cough 22219746 R05.1 will start on z robert and prednisone taper [id number] Andrzej Randolph [facility] [address],[place] [address] 10/11/2023 09:21:57 10/11/2023 10:15:28 Depression screening 303951254 Z13.31 negative Body mass index 40+ - severely obese 262165115 Z68.42 will set up with wej luisvcynthia and see if they cover it Supraventr icular tachycardia 1660517 I47.19 worsened with weight gain Mood disorder 22108655 F 31.9 stable Impaired f asting glycemia 287220547 R73.01 will set up with recheck blood work Weight gain 7161094 R63. 5 agreed to additional lab work [facility] risk for falls 047295319 Z91.81 is aware of the falling [id number] Andrzej Randolph [facility] Medicine [address],[place] [address] 06/16/2024 10:48:22 06/16/2024 13:57:34 Asthma 304027805 J45.20 needs refillwill f/u neb new order Anxiety 97148739 F41.1 worsening, but patient not interested in changing medication s at this time Low back pain 147139852 M54.59 stable on tramadol Pain of le ft knee joint 9713528256 15524 M25.562 knee pain, worsehas arthritis doc, will do XR and send result to her doc Chronic sinusitis 817498 00 J32.1 will set up with ENT Body mass index 40+ - severely obese 113599231 Z68.42 switch to phentermin e [id number] Andrzej Randolph [facility] Medicine [address],[place] [address] 10/02/2024 09:12:35 10/02/2024 14:05:22 Acute bacterial bronchitis 408492113 J20.8 B96.89 5332747 sob, wheezing, mild fever [id number] Andrzej Randolph [facility] Medicine [address], [place] [address] 11/22/2024 10:58:11 11/22/2024 13:58:11 Depression screening 785764759 Z13.31 positivedi scussed options meds are good, will talk to her therapist Anxiety 33685308 F41.1 worsening, but patient not interested in changing medication s at this time Palpitations 29136646 R0 0.2 67199 will set up with echo per her cardiologi st request Genuine st ress incontinence 63181053 N39.3 83619 Allergic rhinitis 603510 04 J30.9 05768607 Essential hypertension 78724754 I10 88888 will set up with CBC and CMP Exacerbati on of severe persistent asthma 711867929 J45.51 460085 needs updated Low back pain 037988724 M54.59 stable on tramadol Health Concerns Section Related Observation LastModified by Organization Detai ls LastModified Time None Recorded Concern Status LastModified by Organization Details LastModified Time None Recorded Advance Directives Directive None Recorded Payers Insurance Date Sequence Insurance Name Policy Number Policy Londono Covered Member ID Londono Member ID Guarantor Name 11/22/2024 1 [place] DOS PRIOR TO 20[address] - [facility] (MEDICAID) Bhavna Guzmán [id number] Bhavna Guzmán 11/22/2024 1 [place] [facility] Bhavna Guzmán [id number] Bhavna Guzmán 11/22/2024 1 [place] [facility] Bhavna Guzmán [id number] Bhavna Guzmán Notes Date Note Type Note Provider Name and Address Organization Details Recorded Time 4 text/html ROS as noted in the HPI c/o acute asthma exacerbation The patient is participating in this appointment via telemedicine communication with a phone call/video calling service (Doxy)The patient consents to use of these platforms in place of an in-person appointment due to either sick symptoms the patient is presenting with or current office closure due to COVID exposure in order to keep our office staff and patients safe The patient presents to the office today with concerns of sick symptoms including nasal congestion, cough, wheezing, laryngitis, low grade fever and chest tightness The symptoms started originally about a week agoThe patient reports exposure to sick kids at home (her kids and grandkids)The patient symptoms mainly involves the wheezing, cough, and sob Pertinent comorbidities include asthma The patient symptoms are alleviated by restThe patient symptoms are exacerbated by activity The patient has tested for COVID-19 and the results was negative SANDY DENISE [address] [place], [address], [facility], [place], operated [facility] 03/29/2023 14:05:41 4 text/html ROS as noted in the HPI f/u concern about obesity the patient is having a lot of joint pain, difficulties with activity causing more joint painhaving worsening asthmatic symptoms, down to five cigarettes a week doing much morepatient feels heavy, her knees achesthe patient reports it is exacerbated her fibromyalgia and palpitations, easily gets sob also the oral surgery will not do surgery to have her teeth fixed due to the increase in palpitationseasily fatigued as well given the energy it takes to move for her and frequent falls due to ankle and feet problems discussed patient's weight which she believes is a big problem causing the issues which is likelyshe is technically down from previous weight about a year ago, from 272 lbs to 255.6 lbs with cutting out sugar and carbs, but seems to have hit a plateauthe patient and I discussed options, will try wegovy see if we can clear it through her insurance, though [facility] does not typically cover any medications for weight loss, considers them vanity products will also have her f/u with blood work as well SANDY DENISE [address] [facility], [place], [address], [facility] [place], [facility] 10/11/2023 09:53:03 5 text/html ROS as noted in the HPI f/u med f/u asthma: stable, needs new nebulizer anxiety: would like to restart duloxetine for the anxiety and the painworked good for her, now that she has been off on it she noticed the difference low back pain: stable on the tramadol chronic sinusitis: needs ENT referralcould be chronic inflammatory changes due to having COVID which is when this started left knee pain, full joint, recommended updated imaging, will also contact her arthritis doc SANDY DENISE [address] [place], [address], [facility] [place], operated [facility] 06/16/2024 11:34:00 5 text/html ROS as noted in the HPI c/o URI The patient is participating in this appointment via telemedicine communication with a phone call (audio) only.The patient consents to use of these platforms in place of an in-person appointment due to either patient being acutely ill (being in office would put our staff and our other patients at risk) or unable to make an in-person appointment due to either lack of transporation, severe medical condition, immunocompromised, etc.The appointment took place over a phone call (audio) due to patient's inability to access or use an audio and visual platform. The patient presents to the office today with concerns of sick symptoms including sob, wheezing, cough, fever, fatigue The symptoms started originally 3 days agoThe patient reports exposure to kids (grandkids)The patient symptoms mainly involves the sob, cough, wheezing Pertinent comorbidities include hx of mod asthma The patient symptoms are alleviated by inhaler and neb for a few hoursThe patient symptoms are exacerbated by movement, talking The patient has tested for COVID-19 and the results was negative SANDY DENISE [address] [place], [address], [facility] [place], [facility] 10/02/2024 10:44:53 5 text/html ROS as noted in the HPI f/u BP medication she had an issue with the losartanhad her d/c it to see if the symptoms resolved, which they didshe didn't follow up about restarting or changing medicationdid monitor her BP and it was elevated still having the palpitations, the pt does have cardioshe did tell them that metoprolol didn't seem to be helping herthey told her to go to the ER, which is not recommended at this timeshe hx has palpitations and is otherwise stable, they told her to tell us to order an US echo, which I will put in, though I did discuss with patient these tests should be done through her cardio office needs refill of her klonapin allergies are very bad, discussed options, with her asthma suggested montelukast which she will trial she is very anxious today, related to issues with her son and granddaughter, otherwise no big mood changes, she is AOx 3 having the stress incontinence, has seen uro, recommend alt referral to urogyn which she agreed with uses ibuprofen as needed med list is updated in chart depression screening: working on her medications, mostly situational fam issues SANDY DENISE [address] [place], [address], [facility] 11/22/2024 12:05:11 OBGyn Episode No OBEpisode recorded.
[2025-01-03 02:07] VITALS: BP 165/79; PULSE 85; RESP 14; TEMP 36.6; O2SAT 98
--- OUTSIDE RECORDS SUMMARY | 2025-01-03 02:07 | XMS_ITS | Clinical Summary ---
Author Organization [facility] Address [address] [place] [address] Phone Care Team Providers Care Dobby Looms Pegger Name Role Phone Physician, Pcp Unknown Primary Care Provider Nuzhat vailable Allergies Active Allergy Reactions Criticality Noted Date Comments Bupropion Palpitations 12/17/2022 Losartan Shortness of breath High 12/17/2022 Social History Tobacco Use Types Packs/Day Years Used Date Smoking Tobacco: Never Assessed Comments Unknown Sex and Gender Information Value Date Recorded Sex Assigned at Not on file Legal Sex Female 7:11 PM EST Gender Identity Not on file Sexual Orientation Not on file Obstetrics History Last Filed Vital Signs Vital Sign Reading Time Taken Comments Blood Pressure 169/95 07/31/2024 10:44 PM EDT Pulse 85 07/31/2024 10:44 PM EDT Temperature 36.7 C (98.1 F) 07/31/2024 10:44 PM EDT Respiratory Rate 18 07/31/2024 10:44 PM EDT Oxygen Saturation 97% 07/31/2024 10:44 PM EDT Inhaled Oxygen Concentration - - Weight 120 kg (265 lb) 07/31/2024 8:28 PM EDT Height 157.5 cm (5' 2 ) 07/31/2024 8:28 PM EDT Body Mass Index 48.47 07/31/2024 8:28 PM EDT Plan of Treatment Health Maintenance Due Date Last Done Comments Breast Cancer Screening 1979 Colorectal Cancer Screening: Colonoscopy 1979 DTaP,Tdap,and Td Vaccines (1 - Tdap) 11/28/1998 Hepatitis B Vaccines (1 of 3 - 19+ 3-dose series) 11/28/1998 Cervical Cancer Screening: P ap Smear 11/28/2000 HPV Vaccines (1 - 3-dose SCD M series) 11/28/2006 Pneumococcal Vaccine: Pediatrics (0 to 5 Years) and At-Risk Patients (6 to 49 Years) (2 of 2 - PCV) 05/25/2021 05/25/2020 Cholesterol Screening (Lipid Panel) 02/21/2022 HIV Screening 02/21/2022 Hepatitis C Screening 02/21/2022 Social Influencers of Health Screening 02/21/2022 Depression Screening 03/22/2024 COVID-19 Vaccine (4 - 2024-2 6 season) 2024 02/24/2021, 07/14/2020, 06/21/2020 Influenza Vaccine (#1) 2024 05/25/2020 Hypertension/CHF/CAD Annual BMP Blood Test 07/31/2025 07/31/2024 RSV Immunization Adult Patients (1 - 1-dose 75+ series) 11/28/2054 HIB Vaccines Aged Out No longer eligi ble based on patient's age to complete this topic Hepatitis A Vaccines Aged Out No long er eligible based on patient's age to complete this topic IPV Vaccines Aged Out No longer eligi ble based on patient's age to complete this topic MMR Vaccines Aged Out No longer eligi ble based on patient's age to complete this topic Meningococcal ACWY Vaccine Aged Out N o longer eligible based on patient's age to complete this topic Meningococcal B Vaccine Aged Out No l onger eligible based on patient's age to complete this topic RSV Immunization Patients Under 20 months Aged Out No longer eligible b ased on patient's age to complete this topic Varicella Vaccines Aged Out No longer eligible based on patient's age to complete this topic Procedures Procedure Name Priority Date/Time Associated Diagnosis Comments COMPREHENSIVE METABOLIC PANEL STAT 07/31/2024 8:40 PM EDT from Last 3 Months or Most Recently Relevant to Health Maintenance Results * (ABNORMAL) Comprehensive metabolic panel (07/31/2024 8:40 PM EDT) Sodium 138 133 - 145 mmol/L LAB CHEMISTRY METHOD 07/31/2024 9:33 PM EDT [facility] Potassium 3.8 3.5 - 5.5 mmol/L LAB CHEMISTRY METHOD 07/31/2024 9:33 PM EDT [facility] Chloride 106 96 - 110 mmol/L LAB CHEMISTRY METHOD 07/31/2024 9:33 PM [facility] CO2 26 21 - 32 mmol/L LAB CHEMISTRY METHOD 07/31/2024 9:33 PM [facility] Anion Gap 6 3 - 11 LAB CHEMISTRY METHOD 07/31/2024 9:33 PM [facility] Glucose 101(H) 70 - 100 mg/dL LAB CHEMISTRY METHOD 07/31/2024 9:33 PM [facility] BUN 11 5 - 25 mg/dL LAB CHEMISTRY METHOD 07/31/2024 9:33 PM [facility] Creatinine 0.76 0.50 - 1.10 mg/dL LAB CHEMISTRY METHOD 07/31/2024 9:33 PM [facility] eGFR 99 >=60 mL/min/1. 73m2 LAB CHEMISTRY METHOD 07/31/2024 9:33 PM [facility] Comment:Calculation based on the Chronic Kidney Disease Epidemiology Collaboration (CKD-EPI) equation refit without adjustment for race. BUN/Creatinine Ratio 14.5 LAB CHEMISTRY METHOD 07/31/2024 9:33 PM [facility] Calcium 8.7 8.5 - 10.5 mg/dL LAB CHEMISTRY METHOD 07/31/2024 9:33 PM [facility] AST (SGOT) 13 10 - 42 unit/L LAB CHEMISTRY METHOD 07/31/2024 9:33 PM [facility] ALT (SGPT) 23 10 - 60 unit/L LAB CHEMISTRY METHOD 07/31/2024 9:33 PM [facility] Alkaline Phosphatase 71 42 - 121 unit/L LAB CHEMISTRY METHOD 07/31/2024 9:33 PM [facility] Total Protein 7.2 6.0 - 8.0 g/dL LAB CHEMISTRY METHOD 07/31/2024 9:33 PM [facility] Albumin 3.4 3.2 - 5.0 g/dL LAB CHEMISTRY METHOD 07/31/2024 9:33 PM EDT [facility] Total Bilirubin 0.3 0.0 - 1.4 mg/dL LAB CHEMISTRY METHOD 07/31/2024 9:33 PM EDT [facility] Blood Venous blood specimen / Unknown Venipuncture / Unknown 07/31/2024 8:40 PM EDT 07/31/2024 9:04 PM EDT us Garland Chaudhry MD LAB BLOOD ORDERABLES Final Result [facility] ([facility]) [facility] [address] [place] [address], from Last 3 Months or Most Recently Relevant to Health Maintenance Insurance MEDICAID - [place] Care Teams Dobby Looms Pegger Relationship Specialty Start Date End Date Physician, Pcp Unknown PCP - General 08/01/24
== END 2025-01-03 02:22 | disposition home or self-care (01) ==
LOC: HO.ED 01-03 02:04
PROVIDERS: Emergency Provider Emergency Medicine Emergency Medical Services
DX: F41.9 Anxiety disorder, unspecified (principal); R06.02 Shortness of breath; R07.89 Other chest pain; F17.210 Nicotine dependence, cigarettes, uncomplicated; Z79.899 Other long term (current) drug therapy
CPT/HCPCS: 36415; 80053; 83735; 84484; 85025; 93005; 99283; 99284

== ENCOUNTER → 2025-01-03 00:01 | Outpatient (BNV) | payer MEDICAID, SELFPAY | PROVIDERS: Emergency Provider Emergency Medicine Emergency Medical Services; Visit Provider Internal Medicine Cardiovascular Disease | DX: I51.7 Cardiomegaly (principal) | CPT/HCPCS: 93010 ==

== ENCOUNTER 2025-02-06 12:52 | Emergency (ER) | payer MEDICAID, SELFPAY ==
--- NOTE | 2025-02-06 12:54 | ECG_ITS ---
Test Reason : CHEST PAIN Blood Pressure : */* mmHG Vent. Rate : 89 BPM Atrial Rate : 89 BPM P-R Int : 156 ms QRS Dur : 78 ms QT Int : 380 ms P-R-T Axes : 72 87 -5 degrees QTcB Int : 462 ms Normal sinus rhythm Biatrial enlargement Nonspecific T wave abnormality Prolonged QT Abnormal ECG When compared with ECG of 03-Jan-2025 00:08, No significant change was found Referred By: Generic ED Physician Electronically Signed By: GABRIELA SULLIVAN
[2025-02-06 13:09] VITALS: BP 133/104; BP 163/94; PULSE 102; PULSE 91; RESP 20; TEMP 36.6; O2SAT 94; O2SAT 97; BMI 51.8
[2025-02-06 13:13] VITALS: BP 163/94; PULSE 91; RESP 20; TEMP 36.6; O2SAT 97
--- NOTE | 2025-02-06 14:11 | ED_ITS ---
HPI - Chest Pain General Chief Complaint: Chest Pain Stated Complaint: CP,NAUSEA/DIZZINESS Time Seen by Provider: 02/06/25 14:09 Source: patient, EMS, RN notes reviewed and old records reviewed Mode of arrival: EMS Limitations: no limitations History of Present Illness ED Provider: Rodger HPI narrative: Patient is a 44-year-old female with history of asthma, sleep apnea, polyarthralgia, anxiety, depression, PTSD, dissociative identity disorder presenting to the emergency department with complaint of chest pain which began approximately 1 hour prior to arrival. States that she was sitting on the couch watching TV with her daughter when symptoms began. Initially thought symptoms might be due to anxiety. Denies any recent strenuous activity. Notes that due to back pain, she has been relatively sedentary for the past 3-4 weeks. Complains of palpitations but states this is her baseline. Reports that she was recently scheduled for an echo on 02/24 but received a call that it needed to be rescheduled and does not have a new date yet. States that when she stood from the couch, she became lightheaded with tunnel vision. Also reports nausea and feeling clammy with radiation of pain to left shoulder and elbow. MD complaint: chest pain Related Data Home Medications ?Medication ?Instructions ?Recorded ?Confirmed albuterol sulfate 90 mcg/actuation 1 puff inhalation Q ID 07/02/20 07/07/22 aerosol inhaler (ProAir HFA) clonazepam 0.5 mg tablet 0.5 mg PO QID PRN 07/02/20 0 07/07/22 ibuprofen 800 mg tablet 800 mg PO Q8H 01/14/2107/07 tramadol 50 mg tablet 50 mg PO Q6H 01/14/21 duloxetine 30 mg capsule,delayed 30 mg PO DAILY 07/07/22 release Previous Rx's ?Medication ?Instructions ?Recorded cock up wrist splint #1 ea 01/14/21 pyridoxine (vitamin B6) 100 mg 100 mg PO DAILY 90 days #90 tabs 07/07/22 tablet methylcellulose (laxative) 500 mg 500 mg PO DAILY #90 tabs 09/17/22 tablet (Citrucel) sennosides 8.6 mg tablet (Natural 8.6 mg PO BEDTIME co nstipation #90 09/17/22 Senna Laxative) tabs cholecalciferol (vitamin D3) 50 50 mcg PO DAILY #90 ca ps 10/01/22 mcg (2,000 unit) capsule cephalexin 500 mg capsule 500 mg PO 1XD 7 days #7 caps 06/20/23 doxycycline hyclate 100 mg capsule 100 mg PO BID 7 day s #14 caps 06/20/23 hydrocodone 5 mg-acetaminophen 325 1 tab PO Q6H PRN pa in #10 tabs 06/20/23 mg tablet Allergies Allergy/AdvReac Type Severity Reaction Status Date / Time bupropion (From WELLBUTRIN) Allergy Severe TACHYCARDIA Verified 02/06/25 13:12 losartan Allergy rash/swelling/blurred Verified 02/06/25 13:12 vision Review of Systems 2 Review of Systems: As per HPI Yes all other systems are reviewed and are negative Constitutional: Constitutional: Reports as per HPI PMFSH Past Medical History Medical History Sleep apnea Dissociative identity disorder PTSD (post-traumatic stress disorder) Anxiety Depression Asthma Polyarthralgia Surgical History H/O tubal ligation Hx of cholecystectomy History of tonsillectomy Family History Family History Mother Acute arthritis Breast cancer Stomach cancer Father Chronic lymphocytic leukemia (CLL), B-cell HTN (hypertension) Acromioclavicular joint arthritis Social History Social History Household Members: Children Alcohol intake: current Alcohol intake frequency: holidays/special occasions only Patient Tobacco Use Status: Current everyday Tobacco user Cigarettes Per Day: 5 Smoked in Last 30 Days: Yes Use of substances other than those prescribed or required for medical reasons: No Substance Use Type: Marijuana Advance Directives: No Advance Directives Information Provided: Yes Do you have a plan to hurt others: No Plan Patient : No Physical Exam 2 Vital Signs: Vital Signs: Last Vital Signs Temp 97.8 F 02/06/25 13:13 Pulse 85 02/06/25 15:52 Resp 18 02/06/25 15:52 BP 163/94 H 02/06/25 13:13 Pulse Ox 97 02/06/25 15:52 O2 Del Method Room Air 02/06/25 15:52 BMI result Body Mass Index 51.8 Vital signs have been reviewed and appear to be correct. Blood pressure elevated. Heart rate normal. Respiratory rate normal. Temperature normal. Oxygen saturation normal. Const: General: cooperative and no acute distress Nutritional Appearance: o bese Orientation/consciousness: oriented to person, oriented to place, oriented to time and patient oriented x3 Limitations: no limitations HEENT: Head: Yes normocephalic and Yes atraumatic Ears: external ears normal General nose exam: Normal external nose present Face and sinus: Yes face symmetric Mouth: oropharynx normal and moist mucous membranes Throat: Yes uvula midline Eyes: Pupils: Equal, round and reactive pupils present Neck: Neck: Yes normal visual inspection and Yes supple Resp: Effort & Inspection: normal respiratory effort and able to speak in complete sentences Auscultation: clear to auscultation bilaterally Cardio: Rate: regular rate Rhythm: regular rhythm Heart sounds: S1 normal heart sound present and S2 normal heart sound present GI: Palpation (GI): Soft to palpation and nontender Auscultation: n ormoactive bowel sounds : General: Yes no CVA tenderness Back/Spine/Pelvis: Back: no CVA tenderness Skin: General skin exam: elasticity normal and turgor normal Neuro: General: oriented to person, oriented to place, oriented to time, patient oriented x3, moves all extremities, no focal motor deficits and CN's II- XI intact bilaterally Cranial nerves: Yes Equal, round and reactive pupils present Cognition (Neuro): normal cognition Extrem: General: Yes full ROM, Yes no pedal edema and Yes no calf tenderness Psych: Mental Status: mental status grossly normal Affect: normal affect Thought process: Normal thought process present Medical Decision Making Medical Decision Making MDM Narrative: Patient is a 44-year-old female with history of asthma, sleep apnea, polyarthralgia, anxiety, depression, PTSD, dissociative identity disorder presenting to the emergency department with complaint of chest pain which began approximately 1 hour prior to arrival. On exam patient is awake, A+Ox3, VS WNL, afebrile, normal neurological exam without focal deficits, physical exam findings as above. Given reported symptoms and physical exam findings, initial differential includes but is not limited to ACS/UT, musculoskeletal pain, GERD, asthma exacerbation, anxiety. PERC 0, unlikely PE. Labs notable for negative troponin x2, otherwise unremarkable. EKG shows normal sinus rhythm, no change from prior. Symptoms have since resolved. Feel patient is stable for discharge with outpatient follow up. Return precautions discussed at bedside. Patient verbalized understanding of and agreement with plan. Differential Diagnosis Differential Diagnoses: The differential diagnosis associated with the presentation includes as per [facility] Admission/Observation Consideration of admission/observation: Escalation of care including admission/observation considered Patient would have been admitted to the hospital and transferred to appropriate facility had their clinical presentation warranted hospital admission. Lab Data [facility] Lab Attestation statement: I reviewed the patient's lab results. as per [facility] 02/06/25 14:25 02/06/25 14:25 Labs: Lab Results 02/06/25 02/06/25 Range/Units 14: 16:51 WBC 11.1 H (4.8-10.8) X10*3/uL RBC 5.22 (4.20-5.50) X10*6/uL Hgb 14.5 (12.0-16.0) g/dl Hct 46.6 (37.0-47.0) % MCV 89.3 (80.0-98.0) fL MCH 27.8 (27.0-33.0) pg MCHC 31.1 (31.0-35.0) g/dl RDW 13.2 (11.0-16.0) % Plt Count 226 (160-400) X10*3/uL MPV 10.7 (9.4-12.3) fL Immature Gran % (Auto) 0.6 H (0.0-0.4) % Neut % (Auto) 71.9 (45-73) % Lymph % (Auto) 15.4 L (20-40) % [place] % (Auto) 7.5 (2-11) % Eos % (Auto) 4.3 H (0-4) % Baso % (Auto) 0.3 (0-2) % Lymph # (Auto) 1.7 (1.2-4.9) X10*3/uL [place] # (Auto) 0.8 (0.1-1.2) X10*3/uL Eos # (Auto) 0.5 H (0.0-0.4) X10*3/uL Baso # (Auto) 0.0 (0.0-0.2) X10*3/uL Abs Immat Gran (auto) 0.07 H (0.00-0.03) X10*3/uL Absolute Neuts (auto) 7.9 (2.0-8.3) x10*3/uL Absolute Nucleated RBC 0.000 (0.0-0.012) X10*3/uL Nucleated RBC % (auto) 0.0 (0.0-0.2) /100WBC Sodium 136 (135-145) mmol/L Potassium 3.8 (3.3-5.1) mmol/L Chloride 105 (96-108) mmol/L Carbon Dioxide 26 (22-29) mmol/L Anion Gap 9 L (12-20) BUN 12 (9-16) mg/dL Creatinine 0.66 (0.5-1.4) mg/dL Estim Creat Clear Calc 138.4 Estimated GFR > 60 Random Glucose 91 (60-115) mg/dL Calcium 10.0 D (8.4-10.2) mg/dL Total Bilirubin 0.3 (0.0-1.0) mg/dL AST 22 (5-31) U/L ALT 23 (0-31) U/L Alkaline Phosphatase 67 (39-117) U/L Troponin I High Sens 5.5 5.8 (<3.5-17.0) ng/L Total Protein 7.6 (6.5-8.0) g/dL Albumin 4.4 (3.5-5.0) g/dL Independent Interpretation I performed an independent interpretation of an: EKG ( Normal sinus rhythm, rate 89 beats per minute, normal NV interval, slightly prolonged QTC, no significant change from prior) External Record Review External record reviewed: Inpatient record, Office record and Outpatient record Discharge Plan Discharge Clinical Impression: Chest pain Patient Disposition: Home, Self-Care Instructions: Chest Pain (DC) Additional Instructions: You were evaluated in the emergency department today for chest pain. 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 Please schedule an appointment for follow-up with your primary care physician this week. Return to the emergency department if you experience worsening or uncontrolled chest pain, shortness of breath, lightheadedness, feeling faint, loss of consciousness, nausea, vomiting, or any other concerning symptoms. Prescriptions: No Action cholecalciferol (vitamin D3) 50 mcg (2,000 unit) capsule 50 mcg PO DAILY Qty: 90 1RF doxycycline hyclate 100 mg capsule 100 mg PO BID 7 Days Qty: 14 0RF hydrocodone-acetaminophen 5-325 mg tablet 1 tab PO Q6H PRN (Reason: pain) Qty: 10 0RF Rx Instructions: partial fill okay; Partial Fill upon patient request. cephalexin 500 mg capsule 500 mg PO 1XD 7 Days Qty: 7 0RF clonazepam 0.5 mg tablet 0.5 mg PO QID PRN albuterol sulfate [ProAir HFA] 90 mcg/actuation HFA aerosol inhaler 1 puff inhalation QID tramadol 50 mg tablet 50 mg PO Q6H ibuprofen 800 mg tablet 800 mg PO Q8H (DME) cock up wrist splint See Rx Instructions .Route .MEDSUPPLY Qty: 1 0RF Rx Instructions: As directed, wear at night. duloxetine 30 mg capsule,delayed release(DR/EC) 30 mg PO DAILY pyridoxine (vitamin B6) 100 mg tablet 100 mg PO DAILY 90 Days Qty: 90 1RF Citrucel 500 mg tablet 500 mg PO DAILY Qty: 90 2RF Rx Instructions: take it with full glass of water sennosides [Natural Senna Laxative] 8.6 mg tablet 8.6 mg PO BEDTIME Qty: 90 3RF Print Language: Chinese
[2025-02-06 14:30] LABS: MANUAL DIFF FLAG NO
[2025-02-06 14:44] LABS: Hematocrit 46.6 % (37.0-47.0); Hemoglobin 14.5 g/dl (12.0-16.0); Imm Gran Abs Auto 0.07 X10*3/uL (0.00-0.03); Imm Gran Pct Auto 0.6 % (0.0-0.4); Lymphocytes Absolute Auto 1.7 X10*3/uL (1.2-4.9); Mean Corpuscular HGB Conc 31.1 g/dl (31.0-35.0); Mean Corpuscular Hemoglobin 27.8 pg (27.0-33.0); Mean Corpuscular Volume 89.3 fL (80.0-98.0); NRBC Abs Auto 0.000 X10*3/uL (0.0-0.012); NRBC Pct Auto 0.0 /100WBC (0.0-0.2); Platelet Count 226 X10*3/uL (160-400); Red Blood Count 5.22 X10*6/uL (4.20-5.50); White Blood Count 11.1 X10*3/uL (4.8-10.8)
[2025-02-06 14:51] LABS: Alanine Aminotransferase 23 U/L (0-31); Albumin Level 4.4 g/dL (3.5-5.0); Alkaline Phosphatase 67 U/L (39-117); Anion Gap 9 (12-20); Aspartate Amino Transferase 22 U/L (5-31); Blood Urea Nitrogen 12 mg/dL (9-16); Calcium 10.0 mg/dL (8.4-10.2); Carbon Dioxide 26 mmol/L (22-29); Chloride 105 mmol/L (96-108); Creatinine Clr Calc Pharmacy 138.4; Estimated Glomerular Filt Rate > 60; Potassium 3.8 mmol/L (3.3-5.1); Sodium 136 mmol/L (135-145); Total Protein 7.6 g/dL (6.5-8.0)
[2025-02-06 14:54] LABS: Troponin-I High Sensitivity 5.5 ng/L (<3.5-17.0)
[2025-02-06 15:52] VITALS: PULSE 85; RESP 18; O2SAT 97
[2025-02-06 17:15] LABS: Troponin-I High Sensitivity 5.8 ng/L (<3.5-17.0)
[2025-02-06 18:15] VITALS: BP 134/66; PULSE 85; RESP 18; TEMP 36.7; O2SAT 97
--- OUTSIDE RECORDS SUMMARY | 2025-02-07 07:06 | XMS_ITS | Data Portability ---
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 on pred and z robert for acute asthma flare up/bronchi tis which is common for patient this time of year Cough 15314690 R05.1 will start on z robert and prednisone taper [id number] Andrzej Randolph [facility] [address] [facility] [employer] [facility] [place] [address] 10/11/2023 09:21:57 10/11/2023 10:15:28 Depression screening 630616881 Z13.31 negative Body mass index 40+ - severely obese 778830785 Z68.42 will set up with wegovy and see if they cover it Supraventr icular tachycardia 0407690 I47.19 worsened with weight gain Mood disorder 31525252 F 31.9 stable Impaired f asting glycemia 795673063 R73.01 will set up with recheck blood work Weight gain 4690582 R63. 5 agreed to additional lab work At [facility] risk for falls 790288675 Z91.81 is aware of the falling [id number] Andrzej Randolph [facility] [address] [facility], [place] [address] 06/16/2024 10:48:22 06/16/2024 13:57:34 Asthma 151874905 J45.20 needs refillwill f/u [facility] new order Anxiety 44993075 F41.1 worsening, but patient not interested in changing medication s at this time Low back pain 948237971 M54.59 stable on tramadol Pain of le ft knee joint 8810483638 59491 M25.562 knee pain, worsehas arthritis doc, will do XR and send result to her doc Chronic sinusitis 236333 00 J32.1 will set up with ENT Body mass index 40+ - severely obese 541104673 Z68.42 switch to phentermin e [id number] Andrzej Randolph [facility] [address] [facility], [place] [address] 10/02/2024 09:12:35 10/02/2024 14:05:22 Acute bacterial bronchitis 967145167 J20.8 B96.89 8877510 sob, wheezing, mild fever [id number] Andrzej Randolph [facility] [address] [facility], [place] [address] 11/22/2024 10:58:11 11/22/2024 13:58:11 Depression screening 189491247 Z13.31 positivedi scussed options meds are good, will talk to her therapist Anxiety 73311982 F41.1 worsening, but patient not interested in changing medication s at this time Palpitations 03533363 R0 0.2 64755 will set up with echo per her cardiologi st request [facility]uine st ress incontinence 42688423 N39.3 06195 Allergic rhinitis 530674 04 J30.9 47084603 Essential hypertension 20214006 I10 50335 will set up with CBC and CMP Exacerbati on of severe persistent asthma 160314992 J45.51 682835 needs updated Low back pain 585878018 M54.59 stable on tramadol Health Concerns Section Related Observation LastModified by Organization Detai ls LastModified Time None Recorded Concern Status LastModified by Organization Details LastModified Time None Recorded Advance Directives Directive None Recorded Payers Insurance Date Sequence Insurance Name Policy Number Policy Londono Covered Member ID Londono Member ID Guarantor Name 11/22/2024 1 [place] PRIOR [place] 2022 - [facility] (MEDICAID) Bhavna Rivas Ramirez [id number] Bhavna J Ramirez 11/22/2024 1 [place] [facility] PLAN Bhavna Rivas Ramirez [id number] Bhavna Evelyn Guzmán 11/22/2024 1 [place] [facility] Bhavna Rivas Ramirez [id number] Bhavna J Guzmán Notes Date Note Type Note Provider Name and Address Organization Details Recorded Time 4 text/html ROS as noted in the HPI c/o acute asthma exacerbation The patient is participating in this appointment via telemedicine communication with a phone call/video calling service ([employer])The patient consents to use of these platforms [...] and the results was negative SANDY DENISE [address] [place] [address], [phone], [facility] 03/29/2023 14:05:41 4 text/html ROS [...] can clear it through her insurance, though [facility] does not typically cover any medications for weight loss, considers them vanity products will also have her f/u with blood work as well SANDY DENISE [address] [place], [address], [facility] 10/11/2023 09:53:03 5 text/html ROS [...] contact her arthritis doc SANDY DENISE [address] [place], [address], [facility] 06/16/2024 11:34:00 5 text/html ROS [...] the results was negative SANDY DENISE [address] [place], [address], [facility] 10/02/2024 10:44:53 5 text/html ROS [...] mostly situational fam issues SANDY DENISE [address] [place], [address], [facility] 11/22/2024 12:05:11 OBGyn Episode No OBEpisode recorded.
--- OUTSIDE RECORDS SUMMARY | 2025-02-07 07:06 | XMS_ITS | Clinical Summary ---
Author Organization [facility] Address [address] [place] [address] Phone Care Team Providers Care Packaging Sales Consultant Name Role Phone Physician, Pcp Unknown Primary [...] LAB CHEMISTRY METHOD 07/31/2024 9:33 PM EDT [facility] Potassium 3.8 3.5 - 5.5 mmol/L LAB CHEMISTRY METHOD 07/31/2024 9:33 PM EDT [facility] Chloride 106 96 - 110 [...] LAB CHEMISTRY METHOD 07/31/2024 9:33 PM EDT [facility] Total Bilirubin 0.3 0.0 - 1.4 mg/dL LAB CHEMISTRY METHOD 07/31/2024 9:33 PM EDT [facility] Blood Venous blood specimen / Unknown Venipuncture / Unknown 07/31/2024 8:40 PM EDT 07/31/2024 9:04 PM EDT us Garland Chaudhry MD LAB BLOOD ORDERABLES Final Result [facility] [address] [place] [address], from Last 3 Months or Most Recently Relevant to Health Maintenance Insurance MEDICA[place] - [place] Care Teams Packaging Sales Consultant Relationship Specialty Start Date End Date Physician, Pcp Unknown PCP - General 08/01/24
== END 2025-02-06 18:15 | disposition home or self-care (01) ==
PROVIDERS: Registered Nurse Emergency; Emergency Provider Emergency Medicine; PCP Internal Medicine
DX: R07.9 Chest pain, unspecified (principal); Z88.8 Allergy status to other drugs, medicaments and biological substances
CPT/HCPCS: 36415; 80053; 84484; 85025; 93005; 99283; 99285

== ENCOUNTER → 2025-02-06 12:54 | Outpatient (BNV) | payer MEDICAID, SELFPAY | PROVIDERS: Emergency Provider Emergency Medicine; PCP Internal Medicine; Visit Provider Internal Medicine | DX: I51.7 Cardiomegaly (principal) | CPT/HCPCS: 93010 ==

== ENCOUNTER 2025-02-23 08:38 | Outpatient (AMB) | payer MEDICAID, SELFPAY ==
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
== END 2025-02-23 10:00 | disposition home or self-care (01) ==
LOC: HO.HSM 08:38
PROVIDERS: PCP Internal Medicine; Visit Provider Registered Nurse
DX: M54.16 Radiculopathy, lumbar region (principal); G40.109 Localization-related (focal) (partial) symptomatic epilepsy and epileptic syndromes with simple partial seizures, not intractable, without status epilepticus; S06.9XAD Unspecified intracranial injury with loss of consciousness status unknown, subsequent encounter; G62.9 Polyneuropathy, unspecified
CPT/HCPCS: 99214

== ENCOUNTER → 2025-02-23 08:38 | Outpatient (BNVA) | payer MEDICAID, SELFPAY | PROVIDERS: PCP Internal Medicine; Visit Provider Registered Nurse | DX: M54.16 Radiculopathy, lumbar region (principal); G40.109 Localization-related (focal) (partial) symptomatic epilepsy and epileptic syndromes with simple partial seizures, not intractable, without status epilepticus; G62.9 Polyneuropathy, unspecified; S06.9XAD Unspecified intracranial injury with loss of consciousness status unknown, subsequent encounter; X58.XXXD Exposure to other specified factors, subsequent encounter | CPT/HCPCS: 99212 ==

== ENCOUNTER 2025-02-27 08:38 | Outpatient (REF) | payer MEDICAID, SELFPAY ==
--- NOTE | ~2025-02-27 | XR_ITS ---
EXAMINATION: XR LUMBOSACRAL SPINE CLINICAL INFORMATION: M54.16 - Radiculopathy, lumbar region COMPARISON: January 09, 2021 TECHNIQUE: AP and lateral views. FINDINGS: Multilevel marginal osteophyte formation and syndesmophyte formation throughout the axial skeleton. Levoconvex curvature of the lumbar spine apex at L2-3. Marginal osteophyte formation and endplate sclerosis and decreased intervertebral disc height at L3-4, L4-5 and L5-S1 levels. No gross malalignment or acute cortical disruption. Facet joint hypertrophy at L4-5 and L5-S1. No lytic or blastic lesions. XR/XR lumbar spine 2-3V IMPRESSION: Multilevel thoracolumbar spondylosis pronounced at L3-4, L4-5 and L5-S1 levels. Levoconvex scoliosis, mild. Electronically signed by: Jayesh Reardon MD 02/27/2025 09:01 AM EMELIA
== END 2025-02-27 08:39 | disposition home or self-care (01) ==
LOC: HO.XRAY 08:38
PROVIDERS: PCP Internal Medicine; Visit Provider Registered Nurse
DX: M54.16 Radiculopathy, lumbar region (principal)
CPT/HCPCS: 72100

== ENCOUNTER → 2025-02-27 08:42 | Outpatient (BNV) | payer MEDICAID, SELFPAY | PROVIDERS: PCP Internal Medicine; Visit Provider Radiology Diagnostic Radiology | DX: M47.26 Other spondylosis with radiculopathy, lumbar region (principal); M48.061 Spinal stenosis, lumbar region without neurogenic claudication; M47.815 Spondylosis without myelopathy or radiculopathy, thoracolumbar region | CPT/HCPCS: 72100 ==

== ENCOUNTER → 2025-03-08 12:40 | Outpatient (REF) | payer MEDICAID, SELFPAY ==
--- OUTSIDE RECORDS SUMMARY | 2025-03-08 16:29 | XMS_ITS | Data Portability ---
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 Palpitations 36854142 R0 0.2 cleared by cardiology will just monitor Hypertensive disorder 38 807244 I10 will set up with CBC and CMP Fatigue 96345750 R53.83 will have her fu with psych, possible related to bipolar not controlled on medication 103783 Andrzej Randolph [facility] [address] [facility],[place] [address] 03/29/2023 11:48:40 03/30/2023 08:04:54 Acute sinusitis 77418466 J01.01 start on z robert and pred for combinatio n exacerbati on symptoms Acute bronchitis 0058843 2 J20.8 will start on pred and z robert for acute asthma flare up/bronchi tis which is common for patient this time of year Cough 45845933 R05.1 will start on z robert and prednisone taper 404855 Andrzej Randolph [facility] [address] [facility] [address] 10/11/2023 09:21:57 10/11/2023 10:15:28 Depression screening 483353594 Z13.31 negative Body mass index 40+ - severely obese 956353746 Z68.42 will set up with wegovy and see if they cover it Supraventr icular tachycardia 2005359 I47.19 worsened with weight gain Mood disorder 54766184 F 31.9 stable Impaired f asting glycemia 029287764 R73.01 will set up with recheck blood work Weight gain 5473835 R63. 5 agreed to additional lab work At [facility] risk for falls 777942986 Z91.81 is aware of the falling 309953 Andrzej Randolph [facility] [address] [facility] [address] 06/16/2024 10:48:22 06/16/2024 13:57:34 Asthma 213625845 J45.20 needs refillwill f/u [facility] new order Anxiety 98138116 F41.1 worsening, but patient not interested in changing medication s at this time Low back pain 975843953 M54.59 stable on tramadol Pain of le ft knee joint 3137402627 22360 M25.562 knee pain, worsehas arthritis doc, will do XR and send result to her doc Chronic sinusitis 259132 00 J32.1 will set up with ENT Body mass index 40+ - severely obese 348437288 Z68.42 switch to phentermin e 627784 Andrzej Randolph [facility] [address] [facility] [address] 10/02/2024 09:12:35 10/02/2024 14:05:22 Acute bacterial bronchitis 112354206 J20.8 B96.89 8785760 sob, wheezing, mild fever 059434 Andrzej Randolph [facility] [address] [facility] [address] [place] [facility] [address] 11/22/2024 10:58:11 11/22/2024 13:58:11 Depression screening 833696959 Z13.31 positivedi scussed options meds are good, will talk to her therapist Anxiety 32170500 F41.1 worsening, but patient not interested in changing medication s at this time Palpitations 72642496 R0 0.2 34171 will set up with echo per her cardiologi st request Genuine st ress incontinence 24074152 N39.3 31727 Allergic rhinitis 275231 04 J30.9 42595852 Essential hypertension 91402379 I10 55034 will set up with CBC and CMP Exacerbati on of severe persistent asthma 282511467 J45.51 230358 needs updated Low back pain 356035518 M54.59 stable on tramadol Health Concerns Section Related Observation LastModified by Organization Detai ls LastModified Time None Recorded Concern Status LastModified by Organization Details LastModified Time None Recorded Advance Directives Directive None Recorded Payers Insurance Date Sequence Insurance Name Policy Number Policy Londono Covered Member ID Londono Member ID Guarantor Name 11/22/2024 1 [place] PRIOR TO 2022 - [facility] (MEDICAID) Bhavna Guzmán [id number] Bhavna Guzmán 11/22/2024 1 [place] [facility] PLAN Bhavna Guzmán [id number] Bhavna Guzmán 11/22/2024 1 [place] [facility] Bhavna Guzmán [id number] Bhavna Guzmán Notes Date Note Type Note [...] the results was negative SANDY DENISE [address] [place], [address], [facility] Internal Medicine 03/29/2023 14:05:41 4 text/html ROS [...] can clear it through her insurance, though [facility] does not typically cover any medications for weight loss, considers them vanity products will also have her f/u with blood work as well SANDY DENISE [address] [place], [address], [facility] Medicine 10/11/2023 09:53:03 5 text/html ROS [...] contact her arthritis doc SANDY DENISE [address] [place], [address], [facility] 06/16/2024 11:34:00 5 text/html ROS [...] and the results was negative SANDY DENISE [address] [place] [address], [phone], [facility] 10/02/2024 10:44:53 5 text/html ROS [...] medications, mostly situational fam issues SANDY DENISE [address] [place] [address], [place], [address], [facility] 11/22/2024 12:05:11 OBGyn Episode No OBEpisode recorded.
--- OUTSIDE RECORDS SUMMARY | 2025-03-08 16:29 | XMS_ITS | Clinical Summary ---
Author Organization [facility] Address [address] [place] [address] Phone Care Team Providers Care Production Operations Inspector Name Role Phone Physician, Pcp Unknown Primary [...] on file Sexual Orientation Not on file Last Filed Vital Signs Vital Sign Reading [...] LAB CHEMISTRY METHOD 07/31/2024 9:[address] [facility] Potassium 3.8 3.5 - 5.5 mmol/L LAB CHEMISTRY METHOD 07/31/2024 9:[address] [facility] Chloride 106 96 - 110 mmol/L LAB CHEMISTRY METHOD 07/31/2024 9:33 PM [facility] CO2 26 21 - 32 mmol/L LAB CHEMISTRY METHOD 07/31/2024 9:33 PM [facility] Anion Gap 6 3 - 11 LAB CHEMISTRY METHOD 07/31/2024 9:33 PM [facility] Glucose 101(H) 70 - 100 mg/dL LAB CHEMISTRY METHOD 07/31/2024 9:33 PM [facility] BUN 11 5 - 25 mg/dL LAB CHEMISTRY METHOD 07/31/2024 9:33 PM [facility] Creatinine 0.76 0.50 - 1.10 mg/dL LAB CHEMISTRY METHOD 07/31/2024 9:33 PM [facility] eGFR 99 >=60 mL/min/1. 73m2 LAB CHEMISTRY METHOD 07/31/2024 9:33 PM [facility] Comment:Calculation based on the Chronic Kidney Disease Epidemiology Collaboration (CKD-EPI) equation refit without adjustment for race. BUN/Creatinine Ratio 14.5 LAB CHEMISTRY METHOD 07/31/2024 9:33 PM [facility] Calcium 8.7 8.5 - 10.5 mg/dL LAB CHEMISTRY METHOD 07/31/2024 9:33 PM [facility] AST (SGOT) 13 10 - 42 unit/L LAB CHEMISTRY METHOD 07/31/2024 9:33 PM [facility] ALT (SGPT) 23 10 - 60 unit/L LAB CHEMISTRY METHOD 07/31/2024 9:33 PM [facility] Alkaline Phosphatase 71 42 - 121 unit/L LAB CHEMISTRY METHOD 07/31/2024 9:33 PM [facility] Total Protein 7.2 6.0 - 8.0 g/dL LAB CHEMISTRY METHOD 07/31/2024 9:33 PM [facility] Albumin 3.4 3.2 - 5.0 g/dL LAB CHEMISTRY METHOD 07/31/2024 9:[address] [facility] Total Bilirubin 0.3 0.0 - 1.4 mg/dL LAB CHEMISTRY METHOD 07/31/2024 9:[address] [facility] Blood Venous blood specimen / Unknown Venipuncture / Unknown 07/31/2024 8:40 PM EDT 07/31/2024 9:04 PM EDT us Garland Chaudhry MD LAB BLOOD ORDERABLES Final Result [facility] [address] [place] [address], from Last 3 Months or Most Recently Relevant to Health Maintenance Insurance MEDICA[place] - [place] Care Teams Production Operations Inspector Relationship Specialty Start Date End Date Physician, Pcp Unknown PCP - General 08/01/24
== END ==
LOC: HO.CARD 12:40
PROVIDERS: PCP Internal Medicine; Visit Provider Physician Assistant
DX: R00.2 Palpitations (principal)
CPT/HCPCS: 93306; Q9957

== ENCOUNTER → 2025-03-08 12:44 | Outpatient (BNV) | payer MEDICAID, SELFPAY | PROVIDERS: PCP Internal Medicine; Visit Provider Internal Medicine Cardiovascular Disease | DX: R93.1 Abnormal findings on diagnostic imaging of heart and coronary circulation (principal) | CPT/HCPCS: 93306 ==